=== PATIENT | female | born 1960 | race Native Hawaiian/Other Pacific Islander ===

== ENCOUNTER 2020-01-13 12:57 | Outpatient (REF) | payer OTHER, SELFPAY | END 2020-01-13 12:58 | disposition home or self-care (01) | LOC: HO.LAB 12:57 | PROVIDERS: Visit Provider Internal Medicine | DX: Z20.828 Contact with and (suspected) exposure to other viral communicable diseases (principal) | CPT/HCPCS: C9803; U0003 ==

== ENCOUNTER 2020-01-23 15:39 | Outpatient (REF) | payer OTHER, SELFPAY | END 2020-01-23 15:40 | disposition home or self-care (01) | LOC: HO.LAB 15:39 | PROVIDERS: Visit Provider Internal Medicine | DX: Z20.828 Contact with and (suspected) exposure to other viral communicable diseases (principal) | CPT/HCPCS: C9803; U0003 ==

== ENCOUNTER 2020-03-02 09:48 | Outpatient (REF) | payer OTHER, SELFPAY ==
[2020-03-02 10:21] LABS: MANUAL DIFF FLAG NO
[2020-03-02 10:24] LABS: Basophils Percent Auto 0.5 % (0-2); Eosinophils Absolute Auto 0.1 X10*3/uL (0.0-0.4); Eosinophils Percent Auto 2.1 % (0-4); Hematocrit 42.3 % (37-47); Imm Gran Abs Auto 0.02 X10*3/uL (0.00-0.03); Imm Gran Pct Auto 0.3 % (0.0-0.4); Lymphocytes Absolute Auto 1.6 X10*3/uL (1.2-4.9); Lymphocytes Percent Auto 28.5 % (20-40); Mean Corpuscular HGB Conc 33.1 g/dl (31.0-35.0); Mean Corpuscular Hemoglobin 29.5 pg (27.0-33.0); Mean Corpuscular Volume 89.1 fL (80-98); Mean Platelet Volume 10.3 fL (9.4-12.3); Monocytes Absolute Auto 0.5 X10*3/uL (0.1-1.2); Neutrophils Absolute Auto 3.4 X10*3/uL (2.0-8.3); Neutrophils Percent Auto 59.6 % (45-73); Platelet Count 251 X10*3/uL (160-400); Red Blood Count 4.75 X10*6/uL (4.20-5.50); White Blood Count 5.8 X10*3/uL (4.8-10.8)
[2020-03-02 10:33] LABS: Glucose Urine UA NEG (NEG); Leukocyte Esterase Urine NEG (NEG); Nitrite Urine NEG (NEG); Urine Blood TRACE (NEG); Urine Ketones NEG (NEG); Urine Protein NEG (NEG-TRACE)
[2020-03-02 10:36] LABS: Appearance Urine CLOUDY; Color Urine YELLOW
[2020-03-02 10:57] LABS: Alanine Aminotransferase 41 U/L (0-31); Albumin Level 4.3 g/dL (3.5-5.0); Alkaline Phosphatase 105 U/L (39-117); Aspartate Amino Transferase 29 U/L (5-31); Bilirubin Total 0.8 mg/dL (0.0-1.0); Blood Urea Nitrogen 8 mg/dL (9-16); Calcium 10.1 mg/dL (8.4-10.2); Cholesterol 209 mg/dL; Estimated Glomerular Filt Rate > 60; Glucose Fasting 99 mg/dL (60-99); HDL Cholesterol 45 mg/dL; LDL Cholesterol Calculated 134 mg/dl; Total Protein 6.7 g/dL (6.5-8.0); Triglycerides 153 mg/dL
[2020-03-02 10:57] LABS: Bacteria Urine 2+ /LPF; Mucus Urine 2+ /LPF; Squamous Epithelial Cell Urine 2+ /LPF
[2020-03-02 11:08] LABS: TSH reflex Free T4 1.48 mIU/mL (0.32-4.0)
[2020-03-02 11:11] LABS: Anion Gap 11 (12-20); Carbon Dioxide 29 mmol/L (22-29); Chloride 105 mmol/L (96-108); Potassium 4.3 mmol/l (3.3-5.1); Sodium 141 mmol/L (135-145)
== END 2020-03-02 09:49 | disposition home or self-care (01) ==
LOC: HO.LAB 09:48
PROVIDERS: PCP Internal Medicine; Visit Provider Internal Medicine
DX: Z00.00 Encounter for general adult medical examination without abnormal findings (principal); E66.01 Morbid (severe) obesity due to excess calories; I10 Essential (primary) hypertension; Z68.41 Body mass index [BMI] 40.0-44.9, adult
CPT/HCPCS: 36415; 80053; 80061; 81001; 84443; 85025

== ENCOUNTER 2020-04-13 12:37 | Outpatient (REF) | payer OTHER, SELFPAY ==
--- NOTE | ~2020-04-13 | US_ITS ---
EXAMINATION: MM DIAGNOSTIC DIGITAL BREAST TOMOSYNTHESIS, BILATERAL US DIAGNOSTIC ULTRASOUND BREAST, RIGHT CLINICAL INFORMATION: Due for yearly. Also follow-up probable benign nodule central inner right breast noted on outside imaging. Family history breast cancer sister, at age 35. The lifetime risk of breast cancer based on the Tyrer-Cuzick Model is 13%. COMPARISON: Outside imaging [facility]: Mammography 03/26/2018, 03/20/2018, targeted right breast ultrasound 11/22/2018. TECHNIQUE: Digital breast tomosynthesis is performed in both the craniocaudal and mediolateral oblique views along with computer-aided detection (CAD). Synthesized 2D images are generated from the tomosynthesis. Ultrasound right breast is targeted to the inner quadrants 1:00 through 5:00 position. Grayscale imaging and color Doppler are performed without and with harmonics. FINDINGS: There are scattered areas of fibroglandular density (ACR BI-RADS breast composition Category b). Parenchymal pattern is similar to previous outside exam. Scattered small benign-appearing nodular asymmetries are stable, including the dominant nodule for follow-up mid 2:30 o'clock position right breast measuring just under 1 cm average dimension. There is no architectural abnormality or developing density. No abnormal calcifications. There are 2 biopsy clip markers lower inner right breast. The axilla and skin contours are unremarkable. Ultrasound right breast demonstrates smooth hypoechoic nodule 2:30 o'clock position approximately 7 cm from nipple, similar in size and shape to the outside targeted ultrasound 2019. Lesion measures under 1 cm in average dimension. Lack of change in 2 years suggests a benign entity. Results are discussed with the patient at time of visit. US/US breast RT limited IMPRESSION: 1. Bilateral mammography without significant change from prior outside exam 2019. 2. Dominant nodule just under 1 cm 2:30 o'clock right breast, stable. ASSESSMENT: BI-RADS 2: Benign RECOMMENDATION: Routine annual mammography screening. This patient's information was entered into a reminder system with a target due date for their next mammogram.
== END 2020-04-13 12:38 | disposition home or self-care (01) ==
LOC: HO.MAMMO 12:37
PROVIDERS: PCP Internal Medicine; Visit Provider Internal Medicine
DX: N63.12 Unspecified lump in the right breast, upper inner quadrant (principal)
CPT/HCPCS: 76642; 77062; 77066

== ENCOUNTER 2020-10-06 10:08 | Outpatient (REF) | payer OTHER, SELFPAY ==
--- NOTE | ~2020-10-06 | XR_ITS ---
EXAMINATION: XR LUMBOSACRAL SPINE CLINICAL INFORMATION: Low back pain COMPARISON: None TECHNIQUE: Three views of the lumbosacral spine. FINDINGS: Bone alignment is normal. No fracture or dislocation is seen. Disc spaces are normal. There is multilevel facet arthritis. There is evidence of mild atherosclerotic disease. XR/XR lumbar spine 2-3V IMPRESSION: Facet arthritis.
== END 2020-10-06 10:09 | disposition home or self-care (01) ==
LOC: HO.XRAY 10:08
PROVIDERS: PCP Internal Medicine; Visit Provider Internal Medicine
DX: M54.5 Low back pain (principal)
CPT/HCPCS: 72100

== ENCOUNTER 2021-01-10 09:21 | Outpatient (REF) | payer OTHER, SELFPAY ==
[2021-01-10 14:16] LABS: CT PCR NOT DETECTED (Not Detect.); NG PCR NOT DETECTED (Not Detect.)
[2021-01-11 10:27] LABS: BV Int Neg Control Negative (Negative); BV Int Pos Control Positive (Positive)
[2021-01-13 21:22] LABS: HPV mRNA E6/E7 rflx Not Detected (Not Detected)
== END 2021-01-10 09:22 | disposition home or self-care (01) ==
LOC: HO.LAB 09:21
PROVIDERS: PCP Internal Medicine; Visit Provider Advanced Practice Midwife
DX: Z01.411 Encounter for gynecological examination (general) (routine) with abnormal findings (principal); Z11.51 Encounter for screening for human papillomavirus (HPV); R21 Rash and other nonspecific skin eruption; N90.89 Other specified noninflammatory disorders of vulva and perineum; Z72.0 Tobacco use
CPT/HCPCS: 87480; 87491; 87510; 87591; 87624; 87660; 88142

== ENCOUNTER 2021-01-25 10:14 | Outpatient (REF) | payer OTHER, SELFPAY ==
--- NOTE | ~2021-01-25 | US_ITS ---
EXAMINATION: ULTRASOUND EXTREMITY NONVASCULAR CLINICAL INFORMATION: Right vulvar mass COMPARISON: None TECHNIQUE: Grayscale and color imaging of the right labia majora region using a linear transducer FINDINGS: No solid or cystic soft tissue mass is seen. No fluid collection is seen. US/US extremity nonvascular IMPRESSION: No abnormality seen by ultrasound.
== END 2021-01-25 10:15 | disposition home or self-care (01) ==
LOC: HO.HMGCX 10:14
PROVIDERS: Visit Provider Advanced Practice Midwife
DX: N90.89 Other specified noninflammatory disorders of vulva and perineum (principal)
CPT/HCPCS: 76882

== ENCOUNTER → 2021-02-01 11:18 | Outpatient (BNVA) | payer OTHER, SELFPAY | PROVIDERS: PCP Internal Medicine; Visit Provider Advanced Practice Midwife | CPT/HCPCS: 99212 ==

== ENCOUNTER 2021-02-16 14:00 | Outpatient (RCR) | payer MEDICAID, OTHER, SELFPAY ==
--- NOTE | 2020-12-23 18:10 | MHC.PT.EP ---
[facility] [place] Office [place] Office [place] Office [address] Merrill Muhammad [address] [phone] F: [phone] F: [phone] F: [phone] F: [phone] Physical Therapy Plan of Care Date of Evaluation: Date of Surgery: N/A Diagnosis: lower back pain Assessment: pt presents to physical therapy with pain, decreased range of motion, decreased strength, impaired functional mobility, impaired postural awareness, and gait deviations. pt is a good candidate for skilled PT due to age, potential remediation of impairments, typical disease/condition progression and prognosis, comorbidities, and motivation. pt would benefit from tailored strengthening and stretching exercise program, functional training, gait training, postural re-training, neuromuscular re-education, modalities as needed for pain, equipment safety demonstration. Frequency and Duration: The patient will be seen 2x/wk for 6 wks Short Term Goals: pt will be I w/ HEP to promote self-management of condition. pt will demo proper sitting posture w/ lumbar roll to promote neutral spine w/ seated ADLs. pt will improve lumbar flexion by 25% to improve ease in lower body dressing. Education And Outreach Coordinator Goals: pt will report <6/10 low back pain w/ standing for >15 minutes to improve tolerance of doing dishes or folding laundry. pt will tolerate ambulation of 5 x 30' w/ subjective pain reports of <6/10 low back pain to promote pain-limited return to household ambulation. pt will improve B hip and knee strength to B 4+/5 in all planes to improve tolerance for stairs. Treatment Plan: Modalities to reduce pain, spasms and effusion. Manual therapy to restore motion and function. Therapeutic exercise to improve strength and flexibility. Neuromuscular re-education for posture and balance. Therapeutic activities to return to functional activities of daily living. Electronically signed by: Dory Flores PT, DPT Please sign and return to therapist. Thank you for your referral.
--- NOTE | 2021-03-17 15:45 | MHC.PT.DC ---
[facility] [place] Office [place] Office [place] Office [address] Mrerill Muhammad 140 [facility] [phone] F: [phone] F: [phone] F: [phone] F: [phone] Physical Therapy Discharge Report Diagnosis: lower back pain Date of Surgery: N/A Date of Evaluation: 12/23/20 Date of Discharge: 03/17/21 Treatments to Date: 11 Cancellations to Date: 3 No Shows to Date: 5 Discharge Status: Visit Non-compliance Discharge Summary: The patient overall was not making progress towards her goals or improvement of her pain. She frequently arrived late and has a total of five no shows. She is discharged from this physical therapy plan of care at this time. Electronically signed by: Dory Flores PT, DPT Please sign and return to therapist. Thank you for your referral.
== END 2021-03-17 15:46 | disposition home or self-care (01) ==
LOC: HO.PT 14:00
PROVIDERS: PCP Internal Medicine; Visit Provider Internal Medicine
DX: M54.50 Low back pain, unspecified (principal)
CPT/HCPCS: 97110; 97112; 97140; 97150; 97162; 97530

== ENCOUNTER 2021-09-23 16:18 | Emergency (ER) | payer OTHER, SELFPAY ==
[2021-09-23 18:07] VITALS: BP 175/88; PULSE 80; RESP 16; TEMP 36.5; O2SAT 95; BMI 42.7
--- NOTE | 2021-09-23 20:16 | ED_ITS ---
HPI - General Adult General Chief complaint: Skin/Abscess/Foreign Body Stated complaint: cyst Time Seen by Provider: 09/23/21 20:07 Source: patient Mode of arrival: ambulatory Limitations: no limitations History of Present Illness HPI narrative: Patient is a 61 year old female presenting to the emergency department today with an abscess to her left inner thigh. Patient states that she has an abscess to the left inner thigh and she would like us to open it up. Patient states that it has been getting worse over the last week. Patient denies any dizziness, lightheadedness, abdominal pain, nausea, vomiting, fever, chills, blurry vision, double vision, loss of vision, chest pain, difficulty breathing, shortness of breath, back pain, night sweats, pain with urination, increased urinary frequency, increased urinary urgency, blood in her urine or stool, syncope or a near syncopal episode, recent trauma or falls, bowel incontinence, bladder incontinence, bowel retention, bladder retention, or any other complaints at this time. Onset (ago): week(s) (1) Location: left and lower extremity Radiation: non-radiation Severity: mild Severity scale (1-10): 3 Quality: dull Pain Consistency: constant Relieving factors: none Exacerbating factors: none Associated symptoms: denies other symptoms Treatments prior to arrival: none Related Data Previous Rx's Medication Instructions Recorded albuterol sulfate 90 mcg/actuation 2 puff inhalation Q6H PRN 09/14/20 aerosol inhaler (Ventolin HFA) shortness of breath or wheezing 30 days #8.5 grams baclofen 10 mg tablet 10 mg PO Q12H PRN muscle pain #10 12/21/20 tabs naproxen 250 mg tablet 250 mg PO Q12H PRN pain #14 tabs 12/21/20 clotrimazole-betamethasone 1 1 appl topical BID PRN itching 14 01/10/21 %-0.05 % topical cream days #45 grams losartan 100 mg tablet 100 mg PO DAILY #90 tabs 03/19/21 metoprolol succinate 100 mg 100 mg PO DAILY #90 tabs 03/19/21 tablet,extended release 24 hr pantoprazole 40 mg tablet,delayed 40 mg PO DAILY 90 days #90 tabs 03/19/21 release sertraline 50 mg tablet 50 mg PO DAILY 30 days #30 tabs 06/14/21 hydroxyzine HCl 25 mg tablet 25 mg PO TID PRN anxiety 30 days 06/17/21 #90 tabs amlodipine 10 mg tablet (Norvasc) 10 mg PO DAILY #90 tabs 08/16/21 aspirin 81 mg tablet,delayed 81 mg PO DAILY 90 days #30 tabs 09/16/21 release cephalexin 500 mg capsule 500 mg PO Q6H 7 days #28 caps 09/23/21 Allergies Allergy/AdvReac Type Severity Reaction Status Date / Time No Known Allergies Allergy Verified 03/17/21 11:58 Review of Systems Constitutional: Constitutional: Reports no additional constitutional complaints, Denies chills, Denies fever(s) and Denies night sweats Eyes: Eyes: Reports no additional eye complaints, Denies blurry vision, Denies change in vision, Denies diplopia, Denies eye discharge, Denies loss of vision and Denies eye pain ENT: Denies dizziness Cardiovascular: Cardiovascular: Reports no additional cardiovascular complaints, Denies chest pain, Denies lightheadedness, Denies Loss of Consciousness and Denies dyspnea Respiratory: Respiratory: Reports no additional respiratory complaints and Denies dyspnea Gastrointestinal: Gastrointestinal: Reports no additional gastrointestinal complaints, Denies abdominal pain, Denies melena, Denies hematochezia, Denies change in bowel habits and Denies change in stool character Genitourinary: Genitourinary: Denies hematuria, Denies urinary frequency, Denies dysuria, Denies urinary incontinence, Denies urinary hesitancy and Denies urinary urgency Musculoskeletal: Musculoskeletal: Reports no additional musculoskeletal complaints, Denies numbness and Denies tingling Integumentary/Breasts: Comments: left inner thigh Neurologic: Denies dizziness, Denies loss of vision, Denies numbness and Denies tingling Psychiatric: Psychiatric: Reports no additional psychiatric complaints Endocrine: Endocrine: Reports no additional endocrine complaints Hematologic/Lymphatic: Hematologic/Lymphatic: Reports no additional hematologic/lymphatic complaints Allergic/Immunologic: Allergic/Immunologic: Reports no additional allergic/immunologic complaints PMFSH Past Medical History Attestation statement: The following information was validated with the patient. Source: old records reviewed Medical History Anxiety Asthma Benign essential hypertension Breast mass, right GERD without esophagitis Low back pain Morbid obesity with BMI of 40.0-44.9, adult Normal colonoscopy (~2014) Post traumatic stress disorder (PTSD) Pure hypercholesterolemia Surgical History History of breast lump/mass excision History of tubal ligation Family History Family History Mother Diabetes mellitus Hypertension Asthma Endometrial cancer Sister Lymphoma Sarcoma Breast cancer Social History Social History Housing: Apartment Alcohol intake: current Alcohol intake frequency: a few times a month Alcohol type: wine Patient Tobacco Use Status: Current everyday Tobacco user Tobacco use type: Cigarette Cigarettes Per Day: 5 Second Hand Smoke Exposure: Yes Advance Directives: No Advance Directives Information Provided: No service: No Current occupational status: unemployed Cognitive needs: No Hearing needs: No Vision needs: Yes (Reading glasses) Physical Exam ED Vital Signs: Vital Signs - 24 hr 09/23/21 18:07 Temperature 97.7 F Pulse Rate 80 Respiratory Rate 16 Blood Pressure 175/88 H Pulse Oximetry 95 Oxygen Delivery Method Room Air BMI result Body Mass Index 42.7 Const General: cooperative, no acute distress, alert and awake Nutritional Appearance: well nourished Orientation/consciousness: patient oriented x3 Limitations: no limitations HENMT Head: Yes normal to inspection and Yes atraumatic Ears: hearing grossly normal bilaterally and external ears normal General nose exam: Normal external nose present, no nasal discharge noted and no epistaxis Face and sinus: Yes normal facial exam, No abrasion and No laceration Mouth: Normal oral and palatal mucosa present, no drooling and no muffled voice Eyes General: appearance normal, both eyes and all related structures Periorbital: periorbital findings normal Eyelids: Yes eyelids normal Conjunctivae: conjunctivae normal Pupils: Equal, round and reactive pupils present EOM: EOMs intact bilaterally Neck Neck: Yes normal visual inspection, Yes full ROM and Yes no lymphadenopathy Chest Chest palpation & inspection: normal inspection of the chest Resp Effort & Inspection: normal respiratory effort and able to speak in complete sentences Auscultation: clear to auscultation bilaterally Cardio Rate: regular rate Rhythm: regular rhythm GI Inspection: Yes normal to inspection Skin Other: small area of erythema and fluctuance Neuro General: patient oriented x3 and moves all extremities Cranial nerves: Yes Equal, round and reactive pupils present Cognition (Neuro): normal cognition Motor exam (neuro): 5/5 motor strength present throughout Sensory Exam: Normal double simultaneous stimulation for sensation Coordination: [id number] test normal Extrem General: Yes normal to inspection, Yes full ROM and Yes capillary refill normal Psych Appearance: grossly normal Mental Status: mental status grossly normal Affect: normal affect Attitude: cooperative Thought process: Normal thought process present Thought content: Normal thought content present Insight: Good insight present (Psych) Procedures Abscess I/D Site: lower extremity Side (if applicable): left Local Anesthetic: lidocaine 1% Amount of anesthesia used (mL): 2 Amount of fluid expressed (mL): 25,555 Sent for culture/gram staining?: No Irrigation: No Packing used?: none Medical Decision Making MDM Narrative Medical decision making narrative: Patient is a 61 year old female presenting to the emergency department today with a left thigh abscess. Patient's physical exam showed a small area of er ythema and fluctuance to the left inner thigh. I explained my physical exam findings to the patient. I answered all questions asked by the patient. Patient's abscess was incised and drained, per procedure note, without incident. I stressed the importance of the patient taking her medication as prescribed. I stressed the importance of the patient following up with her primary care provider. I stressed the importance of the patient returning to the emergency department immediately if her symptoms were to worsen or if she were to develop any dizziness, shortness of breath, difficulty breathing, chest pain, blurry vision, loss of vision, nausea, vomiting, abdominal pain, fever, chills, back pain, or any other complaints. Patient verbalized agreement and understanding with this treatment plan and discharge. Differential Diagnosis Differential Diagnosis: abscess Medical Records Medical records reviewed: Yes I reviewed the patient's medical records. Discharge Plan Discharge Clinical Impression: Abscess Patient Disposition: Home, Self-Care Instructions: Abscess (ED), Abscess Incision and Drainage (DC) Additional Instructions: Follow up with your primary care provider. Return to the emergency department immediately if your symptoms worsen or if you develop any dizziness, shortness of breath, difficulty breathing, chest pain, blurry vision, loss of vision, nausea, vomiting, abdominal pain, fever, chills, back pain, or any other complaints. Prescriptions: New cephalexin 500 mg capsule 500 mg PO Q6H 7 Days Qty: 28 0RF No Action metoprolol succinate 100 mg tablet extended release 24 hr 100 mg PO DAILY Qty: 90 1RF losartan 100 mg tablet 100 mg PO DAILY Qty: 90 1RF pantoprazole 40 mg tablet,delayed release (DR/EC) 40 mg PO DAILY 90 Days Qty: 90 1RF sertraline 50 mg tablet 50 mg PO DAILY 30 Days Qty: 30 2RF hydroxyzine HCl 25 mg tablet 25 mg PO TID PRN (Reason: anxiety) 30 Days Qty: 90 2RF amlodipine [Norvasc] 10 mg tablet 10 mg PO DAILY Qty: 90 1RF aspirin 81 mg tablet,delayed release (DR/EC) 81 mg PO DAILY 90 Days Qty: 30 0RF albuterol sulfate [Ventolin HFA] 90 mcg/actuation HFA aerosol inhaler 2 puff inhalation Q6H PRN (Reason: shortness of breath or wheezing) 30 Days Qty: 8.5 11RF baclofen 10 mg tablet 10 mg PO Q12H PRN (Reason: muscle pain) Qty: 10 0RF naproxen 250 mg tablet 250 mg PO Q12H PRN (Reason: pain) Qty: 14 0RF clotrimazole-betamethasone 1-0.05 % cream 1 appl topical BID PRN (Reason: itching) 14 Days Qty: 45 2RF Referrals: [facility] [place] General Surgeons [Provider Group] (If the abscess returns or gets worse, call to establish and follow up with a general surgeon. ) Kurt Vaughan MD [Primary Care Provider] - Print Language: Yi
[2021-09-23] MEDS: HYDROcodone Bit/Acetam 5/325 TABLET 1 TAB PO (20:58)
[2021-09-23] MEDS: cephALEXin 500 MG CAPSULE PO (20:58)
== END 2021-09-23 21:31 | disposition home or self-care (01) ==
PROVIDERS: Emergency Provider Emergency Medicine; PCP Internal Medicine
DX: L02.416 Cutaneous abscess of left lower limb (principal); Z79.899 Other long term (current) drug therapy; F17.210 Nicotine dependence, cigarettes, uncomplicated; Z71.6 Tobacco abuse counseling
CPT/HCPCS: 10060; 99283

== ENCOUNTER 2022-03-22 12:01 | Outpatient (REF) | payer OTHER, SELFPAY ==
--- NOTE | ~2022-03-22 | XR_ITS ---
EXAMINATION: XR KNEE, RIGHT CLINICAL INFORMATION: Reason for Exam M25.561 - Pain in right knee COMPARISON: None TECHNIQUE: 4 views of the knee FINDINGS: No acute fracture or dislocation. Joint spaces are maintained. No joint effusion. Soft tissues are unremarkable. XR/XR knee RT 4V IMPRESSION: * No acute osseous abnormality. * Joint spaces are maintained without significant degenerative change.
== END 2022-03-22 12:02 | disposition home or self-care (01) ==
LOC: HO.XRAY 12:01
PROVIDERS: PCP Internal Medicine; Visit Provider Internal Medicine
DX: M25.561 Pain in right knee (principal)
CPT/HCPCS: 73564

== ENCOUNTER 2022-04-12 12:27 | Outpatient (REF) | payer OTHER, SELFPAY ==
--- NOTE | ~2022-04-12 | MM_ITS ---
EXAMINATION: MM SCREENING DIGITAL BREAST TOMOSYNTHESIS, BILATERAL CLINICAL INFORMATION: Screening. Asymptomatic. The lifetime risk of breast cancer based on the Tyrer-Cuzick Model is 10.2%. COMPARISON: Mammography: April 13, 2020 and studies dating back to March 20, 2018. TECHNIQUE: Digital breast tomosynthesis is performed in both the craniocaudal and mediolateral oblique views along with computer-aided detection (CAD). Synthesized 2D images are generated from the tomosynthesis. FINDINGS: There are scattered areas of fibroglandular density (ACR BI-RADS breast composition Category b). There are no new significant masses, abnormal calcifications, or other abnormalities. Postsurgical change again seen in the upper outer aspect of the right breast. MM/MM tomosynthesis screening BI IMPRESSION: No significant changes from prior exam. ASSESSMENT: BI-RADS 2: Benign RECOMMENDATION: Routine annual mammography screening. This patient's information was entered into a reminder system with a target due date for their next mammogram.
== END 2022-04-12 12:28 | disposition home or self-care (01) ==
LOC: HO.MAMMO 12:27
PROVIDERS: PCP Internal Medicine; Visit Provider Internal Medicine
DX: Z12.31 Encounter for screening mammogram for malignant neoplasm of breast (principal)
CPT/HCPCS: 77063; 77067

== ENCOUNTER → 2022-06-28 13:45 | Outpatient (BNVA) | payer MEDICARE, MEDICAID, SELFPAY | PROVIDERS: PCP Internal Medicine; Visit Provider Advanced Practice Midwife | DX: Z01.419 Encounter for gynecological examination (general) (routine) without abnormal findings (principal); N95.1 Menopausal and female climacteric states; N90.89 Other specified noninflammatory disorders of vulva and perineum; B35.6 Tinea cruris | CPT/HCPCS: 99212; G0101 ==

== ENCOUNTER 2022-09-18 12:20 | Outpatient (AMB) | payer MEDICARE, MEDICAID, SELFPAY ==
[2022-09-18 12:29] VITALS: BP 120/76; BMI 40.9
--- NOTE | 2022-09-18 12:29 | MHC.OFFVIS ---
Intake Vital Signs 09/18/22 12:29 Height 5 ft 7 in Weight 261 lb BMI 40.9 BP 120/76 Intake Visit Reasons: Evaluate Vulva mass per Ellen Social Media Designer Required: No Information Interpreted: non-clinical & clinical Access Database Developer: Access Database Developer Present (Aidyn) Allergies No Known Allergies Allergy (Verified 09/18/22 12:33) Is last menstrual period known: No Post menopausal: Yes HPI HPI Comments History of Present Illness Details Presenting referred from Tata Hester CNM regarding a right vulvar swelling over the last 27 years. The patient that is nontender but the right vulvar swelling has been increasing over the last 27 years right after her last vaginal delivery. No tenderness no other complaints PFSH Medical History Allergic rhinitis Anxiety Asthma Benign essential hypertension Breast mass, right COVID-19 GERD without esophagitis Low back pain Morbid obesity with BMI of 40.0-44.9, adult Normal colonoscopy (~2014) Post traumatic stress disorder (PTSD) Pure hypercholesterolemia Surgical History History of breast lump/mass excision History of tubal ligation Family History Mother Diabetes mellitus Hypertension Asthma Endometrial cancer Sister Lymphoma Sarcoma Breast cancer Social History Housing: Apartment Alcohol intake: current Alcohol intake frequency: a few times a month Alcohol type: wine Patient Tobacco Use Status: Current everyday Tobacco user Tobacco use type: Cigarette Cigarettes Per Day: 3 e-Cigarette/Vaping Use: Never Used Second Hand Smoke Exposure: Yes service: No Current occupational status: unemployed Cognitive needs: No Hearing needs: No Vision needs: Yes (Reading glasses) Female Reproductive History Menstrual Age of Menarche: 16 control method: permanent sterilization Total pregnancies: 4 Full term: 3 Number of Living Children: 3 Ab spontaneous: 1 Date of last pap smear: 01/11/21 (negative) Date of Mammogram: 04/12/22 Review of Systems Const All systems reviewed & are unremarkable except as noted in HPI and below Physical Exam Vital Signs: Last Vital Signs BP 120/76 09/18/22 12:29 BMI result Body Mass Index 40.9 General: Yes no CVA tenderness External Female Exam: normal external appearance, normal appearance of the urethra and other (Right labia majora swelling 4 x 5 cm soft) Speculum Exam - Vagina: normal appearance of the vagina, normal palpation, no lesions and no masses Speculum Exam - Cervix: normal appearance of the cervix, normal palpation, no lesions, no masses and nontender Bimanual exam- vagina & uterus: normal bimanual exam, normal palpation, uterine size normal, normal palpation, uterine shape normal, No Cervical tenderness present and non-tender Bimanual Exam- Adnexa, other: normal adnexae Back/Spine/Pelvis Back: no CVA tenderness Assessment & Plan Assessment & Plan (1) Vulvar mass: Comment: right labia majora Code(s): N90.89 - Other specified noninflammatory disorders of vulva and perineum Plan: Discussed with the patient the finding on physical exam, will order ultrasound of the perineum to detect solid mass versus fluid that the plan needle aspiration or biopsy under ultrasound guidance. Depending on the pathology results will treat accordingly. All questions answered, the patient verbalized understanding. Instructions given the patient to schedule ultrasound follow-up appointment Orders: Orders US extremity nonvascular Today N90.89 - Other specified noninflammatory disorders of vulva and perineum Coding Level of Care Code Est Pt Level 3 (50840) Diagnoses Vulvar mass N90.89
== END 2022-09-18 12:52 | disposition home or self-care (01) ==
LOC: HO.HWS 12:20
PROVIDERS: PCP Internal Medicine; Visit Provider Obstetrics & Gynecology
DX: N90.89 Other specified noninflammatory disorders of vulva and perineum (principal)
CPT/HCPCS: 99213

== ENCOUNTER → 2022-09-18 12:20 | Outpatient (BNVA) | payer MEDICARE, MEDICAID, SELFPAY | PROVIDERS: PCP Internal Medicine; Visit Provider Obstetrics & Gynecology | DX: N90.89 Other specified noninflammatory disorders of vulva and perineum (principal) | CPT/HCPCS: 99212 ==

== ENCOUNTER 2022-09-22 13:35 | Outpatient (REF) | payer MEDICARE, MEDICAID, SELFPAY ==
--- NOTE | ~2022-09-22 | US_ITS ---
EXAMINATION: US RIGHT LABIA, LIMITED/FOLLOW UP CLINICAL INFORMATION: Disorder of vulva and perineum. Lump right labia. COMPARISON: None available. TECHNIQUE: Targeted ultrasound images were obtained of the area of concern as indicated by the patient in the right labia. Radiologist was not in attendance. Images were later provided for interpretation. FINDINGS: There is a 2.6 x 2.2 x 2.0 cm complex heterogeneous, hypoechoic area with irregular margins and no demonstrable internal vascularity in the area indicated by the patient in the right labia. US/US pelvic limited IMPRESSION: There is a 2.6 cm complex heterogeneous, hypoechoic lesion with irregular margins in the area indicated by the patient in the right labia of indeterminate etiology. Gynecologic consultation and possible additional imaging with MRI recommended to determine further management.
== END 2022-09-22 13:36 | disposition home or self-care (01) ==
LOC: HO.US 13:35
PROVIDERS: PCP Internal Medicine; Visit Provider Obstetrics & Gynecology
DX: N90.89 Other specified noninflammatory disorders of vulva and perineum (principal)
CPT/HCPCS: 76857

== ENCOUNTER 2022-10-19 10:00 | Outpatient (AMB) | payer MEDICARE, MEDICAID, SELFPAY ==
--- NOTE | 2022-10-19 10:02 | A.OFFVIS_ITS ---
Intake Vital Signs 10/19/22 10:04 Height 5 ft 7 in Weight 260 lb 2.327 oz BMI 40.7 BP 126/78 Intake Visit Reasons: US Follow up School Psychologist Assistant Required: No Information Interpreted: non-clinical & clinical Accompanied by: Self / Same As Patient Allergies No Known Allergies Allergy (Verified 10/19/22 10:05) HPI HPI Comments History of Present Illness Details Presenting for right labial ultrasound follow-up . It showed the following: There is a 2.6 x 2.2 x 2.0 cm complex heterogeneous, hypoechoic area with irregular margins and no demonstrable internal vascularity in the area indicated by the patient in the right labia [facility] Medical History Allergic rhinitis Post traumatic stress disorder (PTSD) Anxiety COVID-19 Low back pain Pure hypercholesterolemia Breast mass, right GERD without esophagitis Morbid obesity with BMI of 40.0-44.9, adult Normal colonoscopy (~2014) Asthma Benign essential hypertension Surgical History History of breast lump/mass excision History of tubal ligation Family History Mother Diabetes mellitus Hypertension Asthma Endometrial cancer Sister Lymphoma Sarcoma Breast cancer Social History Housing: Apartment Alcohol intake: current Alcohol intake frequency: a few times a month Alcohol type: wine Patient Tobacco Use Status: Current everyday Tobacco user Tobacco use type: Cigarette Cigarettes Per Day: 3 e-Cigarette/Vaping Use: Never Used Second Hand Smoke Exposure: Yes service: No Current occupational status: unemployed Cognitive needs: No Hearing needs: No Vision needs: Yes (Reading glasses) Female Reproductive History Menstrual Age of Menarche: 16 Review of Systems Const All systems reviewed & are unremarkable except as noted in HPI and below Reports as per HPI and Reports no additional complaints GI Reports no additional complaints Reports no additional complaints Assessment & Plan Assessment & Plan (1) Vulvar mass: Comment: right labia majora Code(s): N90.89 - Other specified noninflammatory disorders of vulva and perineum Plan: Discussed with the patient the right labial ultrasonographic findings, recommended the next step is to proceed with drainage versus biopsy under imaging guidance , depending on the results will determine the next step, excision versus expectant management. Call in to interventional Radiology Department to the IR environmental projects advisor today to review the ultrasound and recommend if it is feasible to proceed with next step as drainage or biopsy under imaging guidance. All questions answered, the patient verbalized understanding Coding Level of Care Code Est Pt Level 3 (82585) Diagnoses Vulvar mass N90.89
[2022-10-19 10:04] VITALS: BP 126/78; BMI 40.7
== END 2022-10-19 10:18 | disposition home or self-care (01) ==
PROVIDERS: PCP Internal Medicine; Visit Provider Obstetrics & Gynecology
DX: N90.89 Other specified noninflammatory disorders of vulva and perineum (principal)
CPT/HCPCS: 99213

== ENCOUNTER → 2022-10-19 10:00 | Outpatient (BNVA) | payer MEDICARE, MEDICAID, SELFPAY | PROVIDERS: PCP Internal Medicine; Visit Provider Obstetrics & Gynecology | DX: N90.89 Other specified noninflammatory disorders of vulva and perineum (principal) | CPT/HCPCS: 99212 ==

== ENCOUNTER 2022-12-08 11:41 | Outpatient (AMB) | payer OTHER, SELFPAY ==
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
[2022-12-08 12:11] VITALS: BMI 40.7
== END 2022-12-08 12:50 | disposition home or self-care (01) ==
PROVIDERS: PCP Internal Medicine; Visit Provider Orthopaedic Surgery
DX: M23.91 Unspecified internal derangement of right knee (principal)
CPT/HCPCS: 20610; 99204

== ENCOUNTER → 2022-12-08 11:41 | Outpatient (BNVA) | payer OTHER, SELFPAY | PROVIDERS: PCP Internal Medicine; Visit Provider Orthopaedic Surgery | DX: M23.91 Unspecified internal derangement of right knee (principal) | CPT/HCPCS: 20610; 99202; J0665; J1100 ==

== ENCOUNTER 2022-12-26 10:21 | Outpatient (REF) | payer OTHER, MEDICAID, SELFPAY ==
--- NOTE | ~2022-12-26 | US_ITS ---
EXAMINATION: US PELVIS, LIMITED/FOLLOW UP CLINICAL INFORMATION: Right labial lump on physical exam. COMPARISON: Ultrasound pelvic Limited 09/22/2022. TECHNIQUE: Targeted ultrasound images were obtained of the area of concern as indicated by the patient in the right labia. Radiologist was not in attendance. Images were later provided for interpretation. FINDINGS: The previously seen 2.6 cm complex heterogeneous lesion is not seen. Biopsy was therefore not performed. US/US pelvic limited IMPRESSION: Previously seen 2.6 cm complex heterogeneous mass is not seen on this examination. This was directly communicated to Dr. Cerda. This procedure was performed by Solomon Farmer PA-C and supervised by Dr. Camargo.
== END 2022-12-26 10:22 | disposition home or self-care (01) ==
LOC: HO.US 10:21
PROVIDERS: PCP Internal Medicine; Visit Provider Obstetrics & Gynecology
DX: N90.89 Other specified noninflammatory disorders of vulva and perineum (principal)
CPT/HCPCS: 76857

== ENCOUNTER 2023-01-16 09:40 | Outpatient (AMB) | payer OTHER, SELFPAY ==
--- NOTE | 2023-01-16 10:39 | MHC.OFFVIS ---
Intake Vital Signs 01/16/23 10:41 Height 5 ft 7 in Weight 257 lb 15.053 oz BMI 40.4 Intake Visit Reasons: recheck vulva Allergies No Known Allergies Allergy (Verified 10/19/22 10:05) HPI HPI Comments History of Present Illness Details The patient is presenting for follow-up ultra the labial ultrasound. Initially , the patient was seen, for a right labial lump that has been present for the last 27 years according to patient's and has been increasing in size recent, the lump was identified on a pelvic exam. Perineal ultrasound showed the following There is a 2.6 cm complex heterogeneous, hypoechoic lesion with irregular margins in the area indicated by the patient in the right labia of indeterminate etiology. Gynecologic consultation and possible additional imaging with MRI recommended to determine further management. The patient was scheduled for right labial ultrasound guided biopsy , ultrasound showed the following: IMPRESSION: Previously seen 2.6 cm complex heterogeneous mass is not seen on this examination. No biopsy was done The patient is still complaining of her right labial lump [facility] Medical History Allergic rhinitis Post traumatic stress disorder (PTSD) Anxiety COVID-19 Low back pain Pure hypercholesterolemia Breast mass, right GERD without esophagitis Morbid obesity with BMI of 40.0-44.9, adult Normal colonoscopy (~2014) Asthma Benign essential hypertension Surgical History History of breast lump/mass excision History of tubal ligation Family History Mother Diabetes mellitus Hypertension Asthma Endometrial cancer Sister Lymphoma Sarcoma Breast cancer Social History Housing: Apartment Alcohol intake: current Alcohol intake frequency: a few times a month Alcohol type: wine Patient Tobacco Use Status: Current everyday Tobacco user Tobacco use type: Cigarette Cigarettes Per Day: 3 e-Cigarette/Vaping Use: Never Used Second Hand Smoke Exposure: Yes service: No Current occupational status: unemployed Cognitive needs: No Hearing needs: No Vision needs: Yes (Reading glasses) Female Reproductive History Menstrual Age of Menarche: 16 Review of Systems Const All systems reviewed & are unremarkable except as noted in HPI and below Physical Exam Vital Signs: BMI result Body Mass Index 40.4 General: Yes no CVA tenderness External Female Exam: normal appearance of the urethra and other (Right labia majora lump/swelling 4 x 5 cm soft ) Speculum Exam - Vagina: normal appearance of the vagina, normal palpation, no lesions and no masses Speculum Exam - Cervix: normal appearance of the cervix, normal palpation, no lesions, no masses and nontender Bimanual exam- vagina & uterus: normal bimanual exam, normal palpation, uterine size normal, normal palpation, uterine shape normal, No Cervical tenderness present and non-tender Bimanual Exam- Adnexa, other: normal adnexae Back/Spine/Pelvis Back: no CVA tenderness Assessment & Plan Assessment & Plan (1) Vulvar mass: Comment: right labia majora Code(s): N90.89 - Other specified noninflammatory disorders of vulva and perineum Plan: Discussed with the patient discrepancy between the finding on pelvic exam showing a right vulvar soft tissue lump and the above findings on right perineal ultrasound, showing resolution of the complex lesion seen previously on perineal ultrasound in 09/27, therefore will refer to [facility] for further management. All questions answered, the patient verbalized understanding. Instructed the patient to call our office back in case a referral appointment is not scheduled, missed or canceled so that we will assist on rescheduling another appointment, the patient verbalized understanding agreed with the plan. Coding Level of Care Code Est Pt Level 3 (70278) Diagnoses Vulvar mass N90.89
[2023-01-16 10:41] VITALS: BMI 40.4
== END 2023-01-16 11:21 | disposition home or self-care (01) ==
LOC: HO.HWS 09:40
PROVIDERS: PCP Internal Medicine; Visit Provider Obstetrics & Gynecology
DX: N90.89 Other specified noninflammatory disorders of vulva and perineum (principal)
CPT/HCPCS: 99213

== ENCOUNTER → 2023-01-16 09:40 | Outpatient (BNVA) | payer OTHER, SELFPAY | PROVIDERS: PCP Internal Medicine; Visit Provider Obstetrics & Gynecology | DX: N90.89 Other specified noninflammatory disorders of vulva and perineum (principal) | CPT/HCPCS: 99212 ==

== ENCOUNTER 2023-01-30 18:51 | Outpatient (REF) | payer OTHER, SELFPAY ==
--- NOTE | ~2023-01-30 | MR_ITS ---
EXAMINATION: MR KNEE WITHOUT CONTRAST, RIGHT CLINICAL INFORMATION: Internal derangement, right knee pain. COMPARISON: Radiographs dated 03/12/2022 TECHNIQUE: MRI of the knee without contrast was performed using routine sequences on a high-field scanner. FINDINGS: MENISCI: Medial Meniscus: There is a complex tear of the posterior horn and body with a radial component involving the inner two-thirds of the meniscal body and a longitudinal undersurface component extending into the posterior horn. Significant inner margin fraying is noted. Meniscal body is partially extruded. Lateral Meniscus: Intact LIGAMENTS: Cruciate: Intact Collateral: Edema signal around the MCL is likely reactive to the underlying meniscal abnormality. Collateral ligaments are intact. EXTENSOR MECHANISM: Intact ARTICULAR CARTILAGE/BONE: Patellofemoral Compartment: There is mild nonuniform chondral thinning and fibrillation at the patella, more notably at the lateral facet. Small marginal osteophytes. Trochlear cartilage appears relatively well-preserved. Lateral trochlear inclination angle measures 14 degrees, within normal limits. The sulcus angle is diminished, measuring 152 degrees. TT-TG distance measures 1.1 cm, normal. Medial Compartment: Small marginal osteophytes. There is mild nonuniform chondral thinning at the medial femoral condyle and medial tibial plateau weight-bearing surfaces with a small near full-thickness chondral fissure at the medial femoral condyle measuring 1 cm transverse. Focal subchondral edema signal at the far medial margin of the medial tibial plateau is likely reactive to the adjacent meniscal tear. No appreciable subchondral insufficiency fractures. Lateral Compartment: Normal JOINT FLUID AND BURSAE: Moderate to large joint effusion. Small Perez's cyst. MR/MR knee RT wo con IMPRESSION: 1. Complex tear of the posterior horn and body of the medial meniscus with partial extrusion of the meniscal body. 2. Mild medial and patellofemoral compartment osteoarthritis. 3. Moderate to large joint effusion and small Perez's cyst.
== END 2023-01-30 18:52 | disposition home or self-care (01) ==
LOC: HO.MRI 18:51
PROVIDERS: PCP Internal Medicine; Visit Provider Orthopaedic Surgery
DX: M23.91 Unspecified internal derangement of right knee (principal)
CPT/HCPCS: 73721

== ENCOUNTER 2023-02-22 11:35 | Outpatient (AMB) | payer OTHER, SELFPAY ==
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
== END 2023-02-22 12:10 | disposition home or self-care (01) ==
PROVIDERS: PCP Internal Medicine; Visit Provider Orthopaedic Surgery
DX: S83.249A Other tear of medial meniscus, current injury, unspecified knee, initial encounter (principal)
CPT/HCPCS: 99214

== ENCOUNTER → 2023-02-22 11:35 | Outpatient (BNVA) | payer OTHER, SELFPAY | PROVIDERS: PCP Internal Medicine; Visit Provider Orthopaedic Surgery | DX: S83.249D Other tear of medial meniscus, current injury, unspecified knee, subsequent encounter (principal) | CPT/HCPCS: 99212 ==

== ENCOUNTER 2023-04-19 12:29 | Outpatient (REF) | payer OTHER, SELFPAY ==
--- NOTE | ~2023-04-19 | MM_ITS ---
EXAMINATION: MM SCREENING DIGITAL BREAST TOMOSYNTHESIS, BILATERAL CLINICAL INFORMATION: Screening. Asymptomatic. History of left breast lumpectomy upper slightly outer quadrant anterior one third (epithelial proliferative lesion with atypia). Family history breast cancer, sister at age 35. COMPARISON: Mammography: 09/07/2022, 04/13/2020. Outside imaging [facility]: Mammography 03/26/2018, 03/20/2018, targeted right breast ultrasound 11/22/2018. TECHNIQUE: Digital breast tomosynthesis is performed in both the craniocaudal and mediolateral oblique views along with computer-aided detection (CAD). Synthesized 2D images are generated from the tomosynthesis. Added left MLO view was included. FINDINGS: There are scattered areas of fibroglandular density (ACR BI-RADS breast composition Category b). Post lumpectomy changes upper outer left breast anterior one third. Parenchymal pattern is otherwise similar to previous outside exam. Scattered small benign-appearing nodular asymmetries are stable, including the dominant nodule for follow-up mid 2:30 o'clock position right breast measuring just under 1 cm average dimension. There is no architectural abnormality or developing density. No abnormal calcifications. There are 2 biopsy clip markers lower inner right breast. The axilla and skin contours are unremarkable. MM/MM tomosynthesis screening BI IMPRESSION: No mammographic evidence of malignancy. Stable benign findings. ASSESSMENT: BI-RADS BI-RADS 2 - Benign Findings RECOMMENDATION: Routine annual mammography screening. 1 year F/U This examination should not preclude the clinical evaluation of a suspicious palpable abnormality. This patient's information was entered into a reminder system with a target due date for their next mammogram.
== END 2023-04-19 12:30 | disposition home or self-care (01) ==
LOC: HO.MAMMO 12:29
PROVIDERS: PCP Internal Medicine; Visit Provider Internal Medicine
DX: Z12.31 Encounter for screening mammogram for malignant neoplasm of breast (principal)
CPT/HCPCS: 77063; 77067

== ENCOUNTER → 2023-04-19 12:30 | Outpatient (BNV) | payer OTHER, SELFPAY | PROVIDERS: PCP Internal Medicine; Visit Provider Radiology Diagnostic Radiology | DX: Z12.31 Encounter for screening mammogram for malignant neoplasm of breast (principal) | CPT/HCPCS: 77063; 77067 ==

== ENCOUNTER 2023-05-31 12:34 | Outpatient (AMB) | payer OTHER, SELFPAY ==
[2023-05-31 12:40] VITALS: BMI 40.2
--- NOTE | 2023-05-31 12:40 | MHC.OFFVIS ---
Vital Signs 05/31/23 12:40 Height 5 ft 7 in Weight 257 lb BMI 40.2 Intake Visit Reasons: Preop RT knee , MMR 06/06/23 NE Intake Note: Shaniqua is a 62 year old female who presents today for a pre op appointment for her RT knee , MMR 06/06/23 NE. Allergies No Known Allergies Allergy (Verified 05/31/23 12:40) HPI HPI Preop RT knee , MMR 06/06/23 NE: Details: 62-year-old female who presents in the office today for her preoperative history and physical exam prior to a right knee arthroscopy to be performed on 06/06/[address] Owen Traore. Patient has no known allergy history. Patient is currently taking, as follows: - Acyclovir topical 6XD -Amlodipine 10 mg PO daily -Aspirin 81 mg PO daily -Benzonatate 200 mg PO TID PRN -Clotrimazole-betamethasone 1-0.05% topical BID PRN -Diclofenac sodium 75 mg PO BID PRN -Hydroxyzine HCI 25 mg PO TID PRN -Loratadine 10 mg PO Daily PRN -Losartan 100 mg PO daily -Metoprolol succinate ER 100 mg PO Daily -Naproxen 500 mg PO BID PRN -Nicotine 0 mg PO -Pantoprazole 40 mg PO Daily -Trazodone 25 ? 50 mg PO bedtime PRN -Ventolin HFA 90 mcg/actuation 2 puffs inhalation Q6H PRN Patient has a medical history, as follows: -Vulvar mass; right labia majora -Anxiety -Hypercholesterolemia -Right breast mass -GERD -Mobid obesity; BMI as of 05/31/2023 40.2 -Asthma -Hypertension -PTSD Patient has a surgical history, as follows: -Hx of breast lump/mass excision -Hx of tubal ligation Patient has a social history, as follows: -Alcohol: Wine, few time monthly -Tobacco: Cigarette, 3 per day PFSH Medical History Allergic rhinitis Post traumatic stress disorder (PTSD) Anxiety COVID-19 Low back pain Pure hypercholesterolemia Breast mass, right GERD without esophagitis Morbid obesity with BMI of 40.0-44.9, adult Normal colonoscopy (~2014) Asthma Benign essential hypertension Surgical History History of breast lump/mass excision History of tubal ligation Family History Mother Diabetes mellitus Hypertension Asthma Endometrial cancer Sister Lymphoma Sarcoma Breast cancer Social History Housing: Apartment Alcohol intake: current Alcohol intake frequency: a few times a month Alcohol type: wine Patient Tobacco Use Status: Current everyday Tobacco user Tobacco use type: Cigarette Cigarettes Per Day: 3 e-Cigarette/Vaping Use: Never Used Second Hand Smoke Exposure: Yes service: No Current occupational status: unemployed Cognitive needs: No Hearing needs: No Vision needs: Yes (Reading glasses) Female Reproductive History Menstrual Age of Menarche: 16 Review of Systems Const All systems reviewed & are unremarkable except as noted in HPI and below Physical Exam Vital Signs: BMI result Body Mass Index 40.2 Const General: cooperative, healthy appearing, comfortable, no acute distress, well developed, alert and awake Orientation/consciousness: patient oriented x3 HEENT Head: Yes normal to inspection, Yes normocephalic and Yes atraumatic Eyes General: appearance normal, both eyes and all related structures EOM: EOMs intact bilaterally Neck Neck: Yes normal visual inspection and Yes no lymphadenopathy Resp Effort & Inspection: normal respiratory effort and able to speak in complete sentences Cardio Jugular venous distension: no JVD Rate: regular rate Peripheral pulses: Peripheral pulses 2+ throughout GI Inspection: Yes normal to inspection Palpation (GI): Soft to palpation Skin General skin exam: no rashes or lesions noted Rashes: no rashes Neuro General: patient oriented x3 Extrem Other: Right knee: Skin is clean, dry, and intact. TTP medial joint line + steinmens + effusion Psych Appearance: grossly normal Mental Status: mental status grossly normal Affect: normal affect Attitude: cooperative Assessment & Plan Assessment & Plan (1) Medial meniscus tear: Code(s): S83.249A - Other tear of medial meniscus, current injury, unspecified knee, initial encounter Category: Medical Qualifiers: Encounter type: subsequent encounter Laterality: right Meniscus tear of knee type: unspecified type Tear current or old: current Qualified Code(s): S83.241D - Other tear of medial meniscus, current injury, right knee, subsequent encounter Plan Ms. Ozzy Escobar is a 62-year-old female who presents in the office today for her preoperative history and physical exam prior to a right knee arthroscopy to be performed on 06/06/[address] Owen Traore. Patient has no known allergy history. Patient is currently taking, as follows: - Acyclovir topical 6XD -Amlodipine 10 mg PO daily -Aspirin 81 mg PO daily -Benzonatate 200 mg PO TID PRN -Clotrimazole-betamethasone 1-0.05% topical BID PRN -Diclofenac sodium 75 mg PO BID PRN -Hydroxyzine HCI 25 mg PO TID PRN -Loratadine 10 mg PO Daily PRN -Losartan 100 mg PO daily -Metoprolol succinate ER 100 mg PO Daily -Naproxen 500 mg PO BID PRN -Nicotine 0 mg PO -Pantoprazole 40 mg PO Daily -Trazodone 25 ? 50 mg PO bedtime PRN -Ventolin HFA 90 mcg/actuation 2 puffs inhalation Q6H PRN Patient has a medical history, as follows: -Vulvar mass; right labia majora -Anxiety -Hypercholesterolemia -Right breast mass -GERD -Mobid obesity; BMI as of 05/31/2023 40.2 -Asthma -Hypertension -PTSD Patient has a surgical history, as follows: -Hx of breast lump/mass excision -Hx of tubal ligation Patient has a social history, as follows: -Alcohol: Wine, few time monthly -Tobacco: Cigarette, 3 per day I discussed in detail the procedure and what to expect pre and post operatively. We discussed the risks, benefits and alternatives to the surgery and the rehabilitation course. The risks include infection, bleeding, nerve injury, ongoing pain, swelling, and stiffness, perioperative risk of injury to bones and soft tissues, and blood clots. I have answered all questions and with their understanding they have consented to move forward with a right knee arthroscopy to be performed on 06/06/[address] Owen Traore. Post operative medications were sent to the pharmacy, Oxycodone-acetaminophen 5-325 mg (Percocet) PO Q4-6H PRN, quantity 42 tabs for 7 days, while in the office today. The patient was instructed that she should obtain the prescription prior to surgery but should not consume until after the procedure; as these should only be taken for post operative pain management. Should the patient take these medications before surgery, a refill will not be sent to the pharmacy until their scheduled refill date. Follow-up will be at the post operative appointment on 06/12/2023 at 1:00 pm, or sooner if needed. Orders: Orders PT Evaluation and Treatment Today M23.91 - Unspecified internal derangement of right knee, S83.241D - Other tear of medial meniscus, current injury, right knee, subsequent encounter Patient Instructions: Scribed by Laura Smith medical equipment repair technician, for Lottie Gordon PA-C on 05/31/2023 at 12:38 pm, EST. Coding Level of Care Code Global (99622) Diagnoses Tear of medial meniscus of right knee, current, unspecified tear type, subsequent encounter S83.241D Encounter type: subsequent encounter Laterality: right Meniscus tear of knee type: unspecified type Tear current or old: current
== END 2023-05-31 13:18 | disposition home or self-care (01) ==
PROVIDERS: PCP Internal Medicine; Visit Provider Physician Assistant
DX: S83.241D Other tear of medial meniscus, current injury, right knee, subsequent encounter (principal)
CPT/HCPCS: 99024

== ENCOUNTER → 2023-05-31 12:34 | Outpatient (BNVA) | payer OTHER, SELFPAY | PROVIDERS: PCP Internal Medicine; Visit Provider Physician Assistant | DX: S83.241D Other tear of medial meniscus, current injury, right knee, subsequent encounter (principal); I10 Essential (primary) hypertension; Z79.82 Long term (current) use of aspirin; Z79.899 Other long term (current) drug therapy | CPT/HCPCS: 99212 ==

== ENCOUNTER 2023-06-06 08:13 | Day surgery (SDC) | payer OTHER, SELFPAY ==
--- NOTE | 2023-06-04 14:44 | P.CONAN_ITS ---
Documented by User: Allyn Parson NP 06/04/23 14:45 HPI - Anesthesia Eval Consult details Narrative: 62yo F for Right Knee Arthroscopy,with medial meniscal repair PMFSH Active Problems Active Problems: All Active Problems Medial meniscus tear (Acute) Internal derangement of right knee (Acute) Perimenopausal symptoms (Acute) Fungal infection of the groin (Acute) Vulvar mass (Acute) Well woman exam with routine gynecological exam (Acute) Allergic rhinitis (Acute) Cervical cancer screening (Acute) Cold sore (Acute) Right knee pain (Acute) Intermittent chest pain (Acute) Post traumatic stress disorder (PTSD) (Acute) Anxiety (Acute) Encounter to discuss test results (Acute) Low back pain (Acute) Pure hypercholesterolemia (Acute) Breast mass, right (Acute) GERD without esophagitis (Acute) Breast cancer screening (Acute) Morbid obesity with BMI of 40.0-44.9, adult (Acute) Annual physical exam (Acute) Asthma (Acute) Benign essential hypertension (Acute) Past Medical History Medical History Allergic rhinitis Post traumatic stress disorder (PTSD) Anxiety COVID-19 Low back pain Pure hypercholesterolemia Breast mass, right GERD without esophagitis Morbid obesity with BMI of 40.0-44.9, adult Normal colonoscopy (~2014) Asthma Benign essential hypertension Family History Family History Mother Diabetes mellitus Hypertension Asthma Endometrial cancer Sister Lymphoma Sarcoma Breast cancer Surgical History Surgical History (Updated 06/06/23 @ 08:33 by Franca Castillo RN) History of breast lump/mass excision History of tubal ligation Social History Social History Housing: Apartment Alcohol intake: current Alcohol intake frequency: a few times a month Alcohol type: wine Patient Tobacco Use Status: Current everyday Tobacco user Tobacco use type: Cigarette Cigarettes Per Day: 5 e-Cigarette/Vaping Use: Never Used Second Hand Smoke Exposure: Yes Use of substances other than those prescribed or required for medical reasons: No Are you DNR?: No Advance Directives: No Advance Directives Information Provided: Yes service: No Current occupational status: unemployed Cognitive needs: No Hearing needs: No Vision needs: Yes (Reading glasses) Meds Allergies Allergy/AdvReac Type Severity Reaction Status Date / Time No Known Allergies Allergy Verified 06/06/23 08:33 Home Medications ?Medication ?Instructions ?Recorded ?Confirmed ?Last Taken ?Type trazodone 50 mg tablet 25 - 50 mg PO BEDTIME PRN Insomnia 06/28/22 06/06/23 Unknown History prazosin 1 mg capsule 1 mg PO BEDTIME 05/31/23 06/06/23 Unknown History venlafaxine 37.5 mg tablet 37.5 mg PO DAILY 05/31/23 06/06/23 Unknown History metoprolol succinate 100 mg 100 mg PO BEDTIME 06/06/23 06/06/23 Unknown History tablet,extended release 24 hr Assessment and Plan Assessment Anesthesia Assessment: Chart Reviewed Documented by User: Christian Banks MD 06/06/23 09:06 [facility], [facility] Past Medical History Medical History Allergic rhinitis Post traumatic stress disorder (PTSD) Anxiety COVID-19 Low back pain Pure hypercholesterolemia Breast mass, right GERD without esophagitis Morbid obesity with BMI of 40.0-44.9, adult Normal colonoscopy (~2014) Asthma Benign essential hypertension Family History Family History Mother Diabetes mellitus Hypertension Asthma Endometrial cancer Sister Lymphoma Sarcoma Breast cancer Family history of problems with anesthesia: No Surgical History Surgical History (Updated 06/06/23 @ 08:33 by Franca Castillo RN) History of breast lump/mass excision History of tubal ligation History of Problems with Anesthesia: No Social History Social History Housing: Apartment Alcohol intake: current Alcohol intake frequency: a few times a month Alcohol type: wine Patient Tobacco Use Status: Current everyday Tobacco user Tobacco use type: Cigarette Cigarettes Per Day: 5 e-Cigarette/Vaping Use: Never Used Second Hand Smoke Exposure: Yes Use of substances other than those prescribed or required for medical reasons: No Are you DNR?: No Advance Directives: No Advance Directives Information Provided: Yes service: No Current occupational status: unemployed Cognitive needs: No Hearing needs: No Vision needs: Yes (Reading glasses) Meds Allergies Allergy/AdvReac Type Severity Reaction Status Date / Time No Known Allergies Allergy Verified 06/06/23 08:33 Home Medications ?Medication ?Instructions ?Recorded ?Confirmed ?Last Taken ?Type trazodone 50 mg tablet 25 - 50 mg PO BEDTIME PRN Insomnia 06/28/22 06/06/23 Unknown History prazosin 1 mg capsule 1 mg PO BEDTIME 05/31/23 06/06/23 Unknown History venlafaxine 37.5 mg tablet 37.5 mg PO DAILY 05/31/23 06/06/23 Unknown History metoprolol succinate 100 mg 100 mg PO BEDTIME 06/06/23 06/06/23 Unknown History tablet,extended release 24 hr Exam Airway Mallampati Class: III TM Dist: >3cm Neck ROM: Full Assessment and Plan Assessment Anesthesia Assessment: Anesthesia Plan Discussed Final Anesthetic Review Family History of Problems with Anesthesia: No History of Problems with Anesthesia: No NPO: Yes ASA Class: III Final Preanesthetic Review: No Changes in Pt Med Stat, Meds/Allgs Chart Reviewed, Consent Obtained/Reviewed and Anes Risks/Benef Reviewed Patient Risk: Intermediate Procedure Risk: Low Anesthetic Plan Anesthetic Plan: GA Disposition: Standard PACU
[2023-06-06] VITALS (8 sets, daily range): BP systolic 127–147; BP diastolic 62–93; PULSE 65–88; RESP 16; TEMP 36.1–36.4; O2SAT 96–100; BMI 42.9
[2023-06-06] MEDS: Lactated Ringers 1,000 ML 100 ML IVCONT (08:56)
--- NOTE | 2023-06-06 09:22 | MHC.SHP ---
Pre-Procedural Eval Section A - 24 Hr Update-Section A only Date of Service: 06/06/23 The patient is an INPATIENT: No Changes since office visit: No Cold of Flu in the past 2 weeks, No New Medical Problems, No Changes in Medication and No Patient answered all questions The patient has been examined within 24 hours of the surgical procedure. The History & Physical has been completed within 30 days and I have reviewed it.: Yes Section B - Complete if H&P > 30 days Chief Complaint: Other tear of medial meniscus, current injury, Allergies: Allergies Allergy/AdvReac Type Severity Reaction Status Date / Time No Known Allergies Allergy Verified 06/06/23 08:33 Plan I have reviewed the history and physical and performed a pertinent physical examination on my patient. No changes have occurred unless specified. Time Spent With Patient Time: Total time managing care of this patient today ____ minutes.
--- NOTE | 2023-06-06 10:03 | P.BOP_ITS ---
Brief Operative Note Date of Service: 06/06/23 Pre-op diagnosis: Right knee MMT Post-op diagnosis: same Procedure: Right knee partial medial meniscectomy Surgeon: Owen Traore MD Anesthesia: GETA Was an International Relations Professor used for this Procedure?: No Estimated blood loss (mL): 1 Tourniquet time (min): 14 IV fluids (mL): 300 Pathology: none sent Condition: stable Disposition: PACU
[2023-06-06] MEDS: fentaNYL citrate/PF 100 MCG/2 ML VIAL 50 MCG IVPUSH (10:49)
--- NOTE | 2023-06-08 15:21 | W.PM.OPN ---
Operative Note Operative Note Date of Service: 06/06/23 Narrative: Date of Service: 06/06/23 Pre-op diagnosis: Right knee MMT Post-op diagnosis: same Procedure: Right knee partial medial meniscectomy Surgeon: Owen Traore MD Anesthesia: GETA Was an Electrolysist used for this Procedure?: No Estimated blood loss (mL): 1 Tourniquet time (min): 14 IV fluids (mL): 300 Pathology: none sent Condition: stable Disposition: PACU Procedure in detail: Patient was brought to the operating room placed supine on the arthroscopic table and prepped and draped in standard sterile fashion. A time-out was called to identify proper site proper procedure proper surgeon and IV antibiotics per weight were administered. I began by exsanguinating the limb and insufflating tourniquet to 300 mm Hg. Then made a standard anterolateral stab incision. The knee was insufflated with water and 30 degree arthroscope was placed. There was grade 1/2 fibrillations of the patella but overall suprapatellar pouch and the gutters were clean. I descended into the medial compartment where I made my medial portal under direct visualization. There was obvious of complex tear of the posterior horn of the medial meniscus. The root was intact and there was grade 2 changes in the tibial plateau and less so in the MFC. I used a combination of biter shaver and cautery to remove unstable portions of the meniscus. Approximately 30% meniscal volume was removed. Once I was satisfied with this the ACL was examined and found to be intact and the lateral compartment also was without the need for intervention. I then removed all instrumentation and closed the portals with skin glue. 25 mL of 2% Marcaine with epinephrine was injected into the joint and the surrounding soft tissues. Patient was then placed in sterile dressing extubated brought recovery room stable condition. There were no known complications.
== END 2023-06-06 12:04 | disposition home or self-care (01) ==
LOC: HO.SSS 08:15
PROVIDERS: PCP Internal Medicine; Visit Provider Orthopaedic Surgery
PROC: (CPT 29870; principal; 2023-06-06 10:30)
DX: S83.231A Complex tear of medial meniscus, current injury, right knee, initial encounter (principal); X58.XXXA Exposure to other specified factors, initial encounter; Y93.9 Activity, unspecified; Y92.9 Unspecified place or not applicable; Y99.8 Other external cause status; M17.11 Unilateral primary osteoarthritis, right knee; M23.91 Unspecified internal derangement of right knee; I10 Essential (primary) hypertension; J45.909 Unspecified asthma, uncomplicated; E78.00 Pure hypercholesterolemia, unspecified; E66.01 Morbid (severe) obesity due to excess calories; Z68.41 Body mass index [BMI] 40.0-44.9, adult; F41.9 Anxiety disorder, unspecified; F43.10 Post-traumatic stress disorder, unspecified; Z79.82 Long term (current) use of aspirin; Z79.899 Other long term (current) drug therapy; Z79.1 Long term (current) use of non-steroidal anti-inflammatories (NSAID); F17.210 Nicotine dependence, cigarettes, uncomplicated; Z56.0 Unemployment, unspecified
CPT/HCPCS: 29881; J0131; J0171; J0690; J2250; J2704; J2795; J3010

== ENCOUNTER → 2023-06-06 08:13 | Outpatient (BNV) | payer OTHER, SELFPAY | PROVIDERS: PCP Internal Medicine; Visit Provider Orthopaedic Surgery | DX: S83.231A Complex tear of medial meniscus, current injury, right knee, initial encounter (principal) | CPT/HCPCS: 29881 ==

== ENCOUNTER 2023-06-12 13:04 | Outpatient (AMB) | payer OTHER, SELFPAY ==
[2023-06-12 13:11] VITALS: BMI 42.9
--- NOTE | 2023-06-12 13:11 | MHC.OFFVIS ---
Vital Signs 06/12/23 13:11 Height 5 ft 6 in Weight 266 lb BMI 42.9 Intake Visit Reasons: PO RT knee , MMR 06/06/23 NE Intake Note: Shaniqua is a 62 year old female who presents today for a post op appointment s/p RT knee , MMR 06/06/23 NE. Patient reports constant discomfort, worse at night, 7-8 on 0-10 pain scale. She is no longer taking oxycodone due to drowsiness. She is taking Diclofenac that was prescribed for her back, with relief. 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 Traore. While in the office the patient reports discomfort that increases at night. She claims her pain is a 7-8/10. PFSH Medical History (Updated 06/12/23 @ 14:50 by Laura Smith) Allergic rhinitis Post traumatic stress disorder (PTSD) Anxiety COVID-19 Low back pain Pure hypercholesterolemia Breast mass, right GERD without esophagitis Morbid obesity with BMI of 40.0-44.9, adult Normal colonoscopy (~2014) Asthma Benign essential hypertension Surgical History (Updated 06/06/23 @ 08:33 by Franca Castillo RN) History of breast lump/mass excision History of tubal ligation Family History Mother Diabetes mellitus Hypertension Asthma Endometrial cancer Sister Lymphoma Sarcoma Breast cancer Social History Housing: Apartment Alcohol intake: current Alcohol intake frequency: a few times a month Alcohol type: wine Patient Tobacco Use Status: Current everyday Tobacco user Tobacco use type: Cigarette Cigarettes Per Day: 5 e-Cigarette/Vaping Use: Never Used Second Hand Smoke Exposure: Yes service: No Current occupational status: unemployed Cognitive needs: No Hearing needs: No Vision needs: Yes (Reading glasses) Female Reproductive History Menstrual Age of Menarche: 16 Review of Systems Const All systems reviewed & are unremarkable except as noted in HPI and below Physical Exam Vital Signs: BMI result Body Mass Index 42.9 Const General: cooperative, healthy appearing and no acute distress Resp Effort & Inspection: normal respiratory effort and able to speak in complete sentences Cardio Rate: regular rate Peripheral pulses: Peripheral pulses 2+ throughout GI Palpation (GI): Soft to palpation Skin Lesions: no lesions Rashes: no rashes Extrem Other: Right knee: Incision site is clean, dry, and intact. Steri-stripes intact. No surrounding erythema or drainage. No signs of infection. ROM is 0-90 degrees. NVI. Assessment & Plan Assessment & Plan (1) Medial meniscus tear: Comment: Right knee partial medial meniscectomy 06/06/2023 Dr. Traore Code(s): S83.249A - Other tear of medial meniscus, current injury, unspecified knee, initial encounter Category: Medical Qualifiers: Encounter type: subsequent encounter Laterality: right Meniscus tear of knee type: unspecified type Tear current or old: current Qualified Code(s): S83.241D - Other tear of medial meniscus, current injury, right knee, subsequent encounter Plan Ms. Ozzy Escobar is a 62-year-old female who presents in the office today 6 days status post right knee partial medial meniscectomy, which was performed on 06/06/[address] Traore. While in the office the patient reports discomfort that increases at night. She claims her pain is a 7-8/10. Steri-stripes were removed, and new steri-stripes were applied. She is going to attend PT to focus on ROM. I also recommended Motrin for inflammation. Follow up will be in 4 weeks for a ROM check, or sooner if needed. Patient Instructions: Scribed by Laura Smith medical staff services manager, for Lottie Gordon PA-C on 06/12/2023 at 1:07 pm, EST. Coding Level of Care Code Global (25962) Diagnoses Tear of medial meniscus of right knee, current, unspecified tear type, subsequent encounter S83.241D Encounter type: subsequent encounter Laterality: right Meniscus tear of knee type: unspecified type Tear current or old: current
== END 2023-06-12 14:08 | disposition home or self-care (01) ==
PROVIDERS: PCP Internal Medicine; Visit Provider Physician Assistant
DX: S83.241D Other tear of medial meniscus, current injury, right knee, subsequent encounter (principal)
CPT/HCPCS: 99024

== ENCOUNTER → 2023-06-12 13:04 | Outpatient (BNVA) | payer OTHER, SELFPAY | PROVIDERS: PCP Internal Medicine; Visit Provider Physician Assistant | DX: S83.241D Other tear of medial meniscus, current injury, right knee, subsequent encounter (principal) | CPT/HCPCS: 99212 ==

== ENCOUNTER 2023-07-12 13:25 | Outpatient (AMB) | payer OTHER, SELFPAY ==
--- NOTE | 2023-07-12 13:26 | MHC.OFFVIS ---
Vital Signs 07/12/23 13:27 Height 5 ft 6 in Weight 266 lb BMI 42.9 Intake Visit Reasons: PO RT knee , MMR 06/06/23 NE Intake Note: Shaniqua is a 62 year old female who presents today for a post op appointment s/p RT knee , MM 06/06/23 NE. Patient continues to have some pain, continues to work with PT. 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 She is doing well with no pain. She is happy with her progress. She is doing PT. [facility] Medical History Allergic rhinitis Post traumatic stress disorder (PTSD) Anxiety COVID-19 Low back pain Pure hypercholesterolemia Breast mass, right GERD without esophagitis Morbid obesity with BMI of 40.0-44.9, adult Normal colonoscopy (~2014) Asthma Benign essential hypertension Surgical History History of breast lump/mass excision History of tubal ligation Family History Mother Diabetes mellitus Hypertension Asthma Endometrial cancer Sister Lymphoma Sarcoma Breast cancer Social History Housing: Apartment Alcohol intake: current Alcohol intake frequency: a few times a month Alcohol type: wine Patient Tobacco Use Status: Current everyday Tobacco user Tobacco use type: Cigarette Cigarettes Per Day: 5 e-Cigarette/Vaping Use: Never Used Second Hand Smoke Exposure: Yes service: No Current occupational status: unemployed Cognitive needs: No Hearing needs: No Vision needs: Yes (Reading glasses) Female Reproductive History Menstrual Age of Menarche: 16 Physical Exam Vital Signs: BMI result Body Mass Index 42.9 Extrem Other: potals c/d/i 0-130 no effusion Assessment & Plan Assessment & Plan (1) Medial meniscus tear: Comment: Right knee partial medial meniscectomy 06/06/2023 Dr. Traore Code(s): S83.249A - Other tear of medial meniscus, current injury, unspecified knee, initial encounter Category: Medical Qualifiers: Tear current or old: current Encounter type: subsequent encounter Meniscus tear of knee type: unspecified type Laterality: right Qualified Code(s): S83.241D - Other tear of medial meniscus, current injury, right knee, subsequent encounter Plan: s/p medial meniscectomy in settimg of mild-moderate knee OA. She is doing well overall and I recommend continued PT. She may f.u PRN Coding Level of Care Code Global (76189) Diagnoses Tear of medial meniscus of right knee, current, unspecified tear type, subsequent encounter S83.241D Tear current or old: current Encounter type: subsequent encounter Meniscus tear of knee type: unspecified type Laterality: right
[2023-07-12 13:27] VITALS: BMI 42.9
== END 2023-07-12 14:15 | disposition home or self-care (01) ==
PROVIDERS: PCP Internal Medicine; Visit Provider Orthopaedic Surgery
DX: S83.241D Other tear of medial meniscus, current injury, right knee, subsequent encounter (principal)
CPT/HCPCS: 99024

== ENCOUNTER → 2023-07-12 13:25 | Outpatient (BNVA) | payer OTHER, SELFPAY | PROVIDERS: PCP Internal Medicine; Visit Provider Orthopaedic Surgery | DX: S83.241D Other tear of medial meniscus, current injury, right knee, subsequent encounter (principal); X58.XXXD Exposure to other specified factors, subsequent encounter | CPT/HCPCS: 99212 ==

== ENCOUNTER 2023-07-26 11:00 | Outpatient (RCR) | payer OTHER, SELFPAY ==
--- NOTE | 2023-06-19 13:21 | MHC.PT.EP ---
[facility] [place] Office [place] Office [place] Office [address] Merrill Muhammad [address] [phone] F: [phone] F: [phone] F: [phone] F: [phone] Physical Therapy Plan of Care Date of Evaluation: 06/19/23 Date of Surgery: 06/06/23 Diagnosis: R MEDIAL MENISCECTOMY 06/06/23 Assessment: Pt IS 62 YO F REFERRED TO PT FROM [facility]TH[facility] ([facility]) S/P R MEDIAL MENISCECTOMY BY DR HART ON 06/06/23. HAS SEEN ORTHO FOR 1 WK FU WITH REMOVAL OF STERI STRIPS AND RE APPLICATION OF NEW STERI STRIPS. REPORTS PAIN R KNEE DISTAL QUAD, AND BRUISING R CALF (Pt WITH LEGGINGS ON..ED TO WEAR/BRING SHORTS NEXT SESSION). Pt WITH LIMITED R KNEE ROM AND LIMITED R LE STRENGTH, SWELLING NOTED, ANTALGIC GT WITH ST CANE. SHOUD BENEFIT FROM PT TO ADDRESS THESE ISSUES Frequency and Duration: The patient will be seen 2X/WK X 8 WKS Short Term Goals: 1. INCREASED AWARENESS KNEE CARE 2, IMPROVED GT PATTERN WITH CANE OR NO AD 3. R KNEE ROM 0-125 4. Pt ABLE TO PERF SLR R WITHOUT QUAD LAG X 2 SETS OF 10 Senior Care Goals: 1. I HEP WITH DC EX PLAN 2. DECREASED R KNEE SWELLING REPORTED 3. DECREASED R KNEE PAIN AT LEAST 50% WITH ADLS 4, IMPROVED LEFI (4/80 SOC) Treatment Plan: Modalities to reduce pain, spasms and effusion. Manual therapy to restore motion and function. Therapeutic exercise to improve strength and flexibility. Neuromuscular re-education for posture and balance. Therapeutic activities to return to functional activities of daily living. Electronically signed by: PAUL BLAND PT Please sign and return to therapist. Thank you for your referral.
--- NOTE | 2023-09-14 13:01 | MHC.PT.DC ---
[facility] [place] [facility] [place] [facility] [place] [facility] [address] [place] [address] [phone] F: [phone] F: [phone] F: [phone] F: [phone] Physical Therapy Discharge Report Diagnosis: R MEDIAL MENISCECTOMY 06/06/23 Date of Surgery: 06/06/23 Date of Evaluation: 06/19/23 Date of Discharge: 09/14/23 Treatments to Date: 7 Cancellations to Date: No Shows to Date: Discharge Status: Patient Elected to Stop Discharge Summary: PER LAST APPT ASSESSMENT ON 07/26/23 BY VALDEMAR MARES PTA 'Pt continues to do well progressing per protocol. No increase in pain noted with above exercises however decreased muscle endurance and requiring freq rest breaks throughout.' Pt CANCELLED LAST SCHEDULED VISIT BECAUSE SHE HURT HER BACK (PER NOTE). NO FURTHER APPTS SCHEDULED Electronically signed by: PAUL BLAND PT Please sign and return to therapist. Thank you for your referral.
== END 2023-09-14 13:01 | disposition home or self-care (01) ==
LOC: HO.PT 11:00
PROVIDERS: PCP Internal Medicine; Visit Provider Physician Assistant
DX: M23.91 Unspecified internal derangement of right knee (principal); S83.241D Other tear of medial meniscus, current injury, right knee, subsequent encounter
CPT/HCPCS: 97110; 97140; 97161; 97530; 97535

== ENCOUNTER 2023-11-09 13:54 | Emergency (ER) | payer OTHER, SELFPAY ==
--- NOTE | ~2023-11-09 | XR_ITS ---
EXAMINATION: XR CHEST CLINICAL INFORMATION: Left-sided chest pain. COMPARISON: None available. TECHNIQUE: 2 views of the chest were obtained. FINDINGS: Normal appearance of the cardiomediastinal silhouette. Slightly increased diffuse interstitial markings. No consolidation. No pleural effusion or pneumothorax. Thoracic spondylosis. No acute osseous findings. XR/XR chest 2V IMPRESSION: Subjective slightly increased interstitial markings that could indicate small airways disease or atypical/viral infection in the appropriate clinical context. No consolidation or pleural effusion. Electronically signed by: Iman Ewing MD 11/09/2023 03:45 PM EDT
--- NOTE | 2023-11-09 13:55 | ECG_ITS ---
Test Reason : cp Blood Pressure : / mmHG Vent. Rate : 073 BPM Atrial Rate : 073 BPM P-R Int : 148 ms QRS Dur : 084 ms QT Int : 378 ms P-R-T Axes : 006 -08 027 degrees QTc Int : 416 ms Normal sinus rhythm Normal ECG No previous ECGs available Referred By: Yessy Jiang Electronically Signed By:ELIDIA SEPULVEDA
[2023-11-09 14:12] VITALS: BP 125/80; PULSE 79; RESP 16; TEMP 36.6; O2SAT 98; BMI 43.3
--- NOTE | 2023-11-09 14:12 | ED_ITS ---
HPI - Chest Pain General Chief Complaint: Chest Pain Stated Complaint: chest pain Time Seen by Provider: 11/09/23 15:02 Source: patient Mode of arrival: ambulatory Limitations: no limitations History of Present Illness ED Provider: Nanette Atwood PA-C HPI narrative: 63 yof presents with 2-3 days of left sided chest pain. States the pain does not radiate, is squeezing in quality and has become constant. States that the pain takes her breath away, denies dyspnea on exertion, orthopnea or cough. Says she is nauseous, has not vomited and feels lethargic. Denies numbness, tingling in extremities, dizziness, palpitations. MD complaint: chest pain and chest heaviness Onset (ago): day(s) Timing of current episode: constant Onset: during rest Pain radiation: none Severity: mild Quality: tightness and heaviness Relieving factors: nothing Exacerbating factors: nothing Associated symptoms: nausea Treatment prior to arrival: none Risk Factors Coronary artery disease risk factors: hypertension Related Data Home Medications ?Medication ?Instructions ?Recorded ?Confirmed trazodone 50 mg tablet 25 - 50 mg PO BEDTIME PRN Insomnia 06/28/22 06/06/23 prazosin 1 mg capsule 1 mg PO BEDTIME 05/31/23 06/06/23 venlafaxine 37.5 mg tablet 37.5 mg PO DAILY 05/31/23 06/06/23 Previous Rx's ?Medication ?Instructions ?Recorded hydroxyzine HCl 25 mg tablet 25 mg PO TID PRN anxiety 30 days 06/17/21 #90 tabs acyclovir 5 % topical ointment 1 appl topical 6XD 7 days #15 grams 02/08/22 loratadine 10 mg tablet 10 mg PO DAILY PRN allergy 06/22/22 symptoms 90 days #90 tabs clotrimazole-betamethasone 1 1 appl topical BID PRN itching 14 06/28/22 %-0.05 % topical cream days #45 grams CANE #1 ea 12/05/22 losartan 100 mg tablet 100 mg PO DAILY #90 tabs 05/18/23 amlodipine 10 mg tablet (Norvasc) 10 mg PO DAILY #90 tabs 06/07/23 aspirin 81 mg tablet,delayed 81 mg PO DAILY 90 days #90 tabs 06/07/23 release metoprolol succinate 100 mg 100 mg PO DAILY #90 tabs 08/15/23 tablet,extended release 24 hr pantoprazole 40 mg tablet,delayed 40 mg PO DAILY 90 days #90 tabs 08/15/23 release Ventolin HFA 90 mcg/actuation 2 puff inhalation Q6H PRN 10/10/23 aerosol inhaler (albuterol sulfate) shortness of breath or wheezing 30 days #18 grams diclofenac sodium 75 mg 75 mg PO BID PRN pain #60 tabs 10/28/23 tablet,delayed release Allergies Allergy/AdvReac Type Severity Reaction Status Date / Time No Known Allergies Allergy Verified 11/09/23 14:14 Review of Systems 2 Constitutional: Constitutional: Reports no additional constitutional complaints, Denies chills, Denies fever(s) and Denies night sweats Eyes: Eyes: Reports no additional eye complaints, Denies blurry vision, Denies change in vision, Denies diplopia, Denies eye discharge, Denies loss of vision and Denies eye pain ENT: Denies dizziness Cardiovascular: Cardiovascular: Reports no additional cardiovascular complaints, Reports chest pain, Reports chest pain at rest, Denies syncope, Denies rapid heart rate, Denies irregular heart rhythm, Denies lightheadedness, Denies Loss of Consciousness, Denies palpitations, Denies dyspnea and Denies dyspnea on exertion Respiratory: Respiratory: Reports no additional respiratory complaints, Denies dyspnea and Denies dyspnea on exertion Gastrointestinal: Gastrointestinal: Reports no additional gastrointestinal complaints, Denies abdominal pain, Denies melena, Denies hematochezia, Denies change in bowel habits and Denies change in stool character Genitourinary: Genitourinary: Denies hematuria, Denies urinary frequency, Denies dysuria, Denies urinary incontinence, Denies urinary hesitancy and Denies urinary urgency Musculoskeletal: Musculoskeletal: Reports no additional musculoskeletal complaints, Denies numbness and Denies tingling Neurologic: Denies dizziness, Denies syncope, Denies loss of vision, Denies numbness and Denies tingling Psychiatric: Psychiatric: Reports no additional psychiatric complaints Endocrine: Endocrine: Reports no additional endocrine complaints and Denies palpitations Hematologic/Lymphatic: Hematologic/Lymphatic: Reports no additional hematologic/lymphatic complaints Allergic/Immunologic: Allergic/Immunologic: Reports no additional allergic/immunologic complaints PMFSH Past Medical History Attestation statement: The following information was validated with the patient. Source: old records reviewed and nursing notes reviewed Medical History Allergic rhinitis Post traumatic stress disorder (PTSD) Anxiety COVID-19 Low back pain Pure hypercholesterolemia Breast mass, right GERD without esophagitis Morbid obesity with BMI of 40.0-44.9, adult Normal colonoscopy (~2014) Asthma Benign essential hypertension Surgical History History of breast lump/mass excision History of tubal ligation Family History Family History Mother Diabetes mellitus Hypertension Asthma Endometrial cancer Sister Lymphoma Sarcoma Breast cancer Social History Social History Housing: Apartment Alcohol intake: current Alcohol intake frequency: a few times a month Alcohol type: wine Patient Tobacco Use Status: Current everyday Tobacco user Tobacco use type: Cigarette Cigarettes Per Day: 5 e-Cigarette/Vaping Use: Never Used Second Hand Smoke Exposure: Yes Advance Directives: No Advance Directives Information Provided: No Do you have a plan to hurt others: No Plan service: No Current occupational status: unemployed Cognitive needs: No Hearing needs: No Vision needs: Yes (Reading glasses) Physical Exam 2 Vital Signs: Vital Signs: Last Vital Signs Temp 97.5 F 11/09/23 16:40 Pulse 77 11/09/23 16:40 Resp 18 11/09/23 16:40 BP 151/91 H 11/09/23 16:40 Pulse Ox 94 11/09/23 16:40 O2 Del Method Room Air 11/09/23 16:40 BMI result Body Mass Index 43.3 Const: General: cooperative, no acute distress, alert and awake Nutritional Appearance: well nourished Orientation/consciousness: patient oriented x3 Limitations: no limitations HEENT: Head: Yes normal to inspection and Yes atraumatic Ears: hearing grossly normal bilaterally and external ears normal General nose exam: Normal external nose present, no nasal discharge noted and no epistaxis Face and sinus: Yes normal facial exam, No abrasion and No laceration Mouth: Normal oral and palatal mucosa present, no drooling and no muffled voice Eyes: General: appearance normal, both eyes and all related structures P eriorbital: periorbital findings normal Eyelids: Yes eyelids normal C onjunctivae: conjunctivae normal Pupils: Equal, round and reactive pupils present EOM: EOMs intact bilaterally Neck: Neck: Yes normal visual inspection, Yes full ROM and Yes no lymphadenopathy Chest: Chest palpation & inspection: normal inspection of the chest Resp: Effort & Inspection: normal respiratory effort and able to speak in complete sentences Cardio: Jugular venous distension: no JVD Rate: regular rate Rhythm: r egular rhythm Heart sounds: S1 normal heart sound present and S2 normal heart sound present GI: Inspection: Yes normal to inspection Neuro: General: patient oriented x3 and moves all extremities Cranial nerves: Yes Equal, round and reactive pupils present Cognition (Neuro): n ormal cognition Extrem: General: Yes normal to inspection, Yes full ROM and Yes capillary refill normal Psych: Appearance: grossly normal Mental Status: mental status grossly normal Affect: normal affect Attitude: cooperative Thought process: N ormal thought process present Thought content: Normal thought content present Insight: Good insight present (Psych) Course Course Course Narrative: This is a Rapid Medical Examination (RME) performed by Jordon Jiang PA-C in triage. Full HPI, ROS, assessment and treatment plan per primary provider in the Main ED. 63 yo female hx of asthma, anxiety, PTSD, GERD, HTN here w/ intermittent left sided chest pain x2-3 days, occurring more frequently today. no change w/ deep breathing. assoc sob and nausea. no palpitations, sweats. reports recent travel to [place]. admits to chronic cough a night secondary to tobacco smoking. + no reproducible tenderness to chest wall. rrr. lungs clear. Plan: labs, ekg, cxr Medications Administered Discontinued Medications Generic Name Dose Route Start Last Admin Trade Name Freq PRN Reason Stop Dose Admin Ketorolac Tromethamine 15 mg 11/09/23 16:31 11/09/23 16:37 Ketorolac Tromethamine 15 Mg/Ml Vial IM 11/09/23 16:32 15 mg ONCE ONE Administration Medical Decision Making Medical Decision Making MDM Narrative: Patient is a 63 year old assigned female at with a history of HTN, GERD, hypercholesteremia, anxiety, PTSD, and intermittent chest pain presenting to the emergency department today with left sided chest pain. Patient's physical exam was unremarkable. Patient's blood work was unremarkable. Patient's EKG was unremarkable. Patient's chest x-ray showed no acute process. I explained my physical exam findings as well as all test results to the patient. I answered all questions asked by the patient. I stressed the importance of the patient taking her medication as directed (either prescribed or as the over the counter packaging recommends). I stressed the importance of the patient following up with her primary care provider. I stressed the importance of the patient returning to the emergency department immediately if her symptoms were to worsen or if she were to develop any dizziness, shortness of breath, difficulty breathing, chest pain, blurry vision, loss of vision, nausea, vomiting, abdominal pain, fever, chills, back pain, or any other complaints. Patient verbalized agreement and understanding with this treatment plan and discharge. Differential Diagnosis Differential Diagnoses: The differential diagnosis associated with the presentation includes NSTEMI STEMI Chest pain Costochondritis Atypical chest pain GERD Admission/Observation Consideration of admission/observation: Escalation of care including admission/observation considered Patient would have been admitted to the hospital had her work up had any findings where hospital admission was appropriate and her clinical presentation warranted hospital admission. Lab Data [facility] Lab Attestation statement: I reviewed the patient's lab results. My interpretation of these results are in the [facility] Rationale portion of this note. 11/09/23 14:51 11/09/23 14:52 Labs: Lab Results 11/09/23 11/09/23 11/09/23 Range/Units 14:47 14:51 14:52 WBC 6.0 (4.8-10.8) X10*3/uL RBC 5.10 (4.20-5.50) X10*6/uL Hgb 15.1 (12.0-16.0) g/dl Hct 43.7 (37.0-47.0) % MCV 85.7 (80.0-98.0) fL MCH 29.6 (27.0-33.0) pg MCHC 34.6 (31.0-35.0) g/dl RDW 13.0 (11.0-16.0) % Plt Count 231 (160-400) X10*3/uL MPV 10.1 (9.4-12.3) fL Immature Gran % (Auto) 0.2 (0.0-0.4) % Neut % (Auto) 58.9 (45-73) % Lymph % (Auto) 26.7 (20-40) % [place] % (Auto) 11.0 (2-11) % Eos % (Auto) 2.7 (0-4) % Baso % (Auto) 0.5 (0-2) % Lymph # (Auto) 1.6 (1.2-4.9) X10*3/uL [place] # (Auto) 0.7 (0.1-1.2) X10*3/uL Eos # (Auto) 0.2 (0.0-0.4) X10*3/uL Baso # (Auto) 0.0 (0.0-0.2) X10*3/uL Abs Immat Gran (auto) 0.01 (0.00-0.03) X10*3/uL Absolute Neuts (auto) 3.6 (2.0-8.3) x10*3/uL Absolute Nucleated RBC 0.000 (0.0-0.012) X10*3/uL Nucleated RBC % (auto) 0.0 (0.0-0.2) /100WBC PT 11.5 (10.9-12.4) SEC INR 1.0 (0.9-1.1) Sodium 141 (135-145) mmol/L Potassium 3.8 (3.3-5.1) mmol/L Chloride 107 (96-108) mmol/L Carbon Dioxide 28 (22-29) mmol/L Anion Gap 10 L (12-20) BUN 14 (9-16) mg/dL Creatinine 0.68 (0.5-1.4) mg/dL Estim Creat Clear Calc 115.6 Estimated GFR > 60 Random Glucose 82 (60-115) mg/dL Calcium 10.5 H (8.4-10.2) mg/dL Magnesium 2.0 (1.6-2.6) mg/dL Total Bilirubin 0.6 (0.0-1.0) mg/dL AST 30 (5-31) U/L ALT 37 H (0-31) U/L Alkaline Phosphatase 124 H (39-117) U/L Troponin I High Sens < 2.7 (<3.5-17.0) ng/L Total Protein 7.1 (6.5-8.0) g/dL Albumin 4.2 (3.5-5.0) g/dL Lipase 19 (8-78) U/L Influenza Type A (PCR) NEGATIVE (Negative) Influenza Type B (PCR) NEGATIVE (Negative) RSV RNA Qual (PCR) NEGATIVE (Negative) SARS-CoV-2 RNA (RT-PCR) NEGATIVE (Negative) Independent Interpretation I performed an independent interpretation of an: EKG and Plain X-Ray Interpretation: My interpretation is in agreement with the radiologist's impression of this imaging study. L EXAMINATION: XR CHEST CLINICAL INFORMATION: Left-sided chest pain. COMPARISON: None available. TECHNIQUE: 2 views of the chest were obtained. FINDINGS: Normal appearance of the cardiomediastinal silhouette. Slightly increased diffuse interstitial markings. No consolidation. No pleural effusion or pneumothorax. Thoracic spondylosis. No acute osseous findings. XR/XR chest 2V IMPRESSION: Subjective slightly increased interstitial markings that could indicate small airways disease or atypical/viral infection in the appropriate clinical context. No consolidation or pleural effusion. Electronically signed by: Iman Ewing MD 11/09/2023 03:45 PM EDT Dictated By: Iman Ewing Signed By: Electronically signed by Iman Ewing 11/09/23 1545 Vent. Rate: 073 BPM Atrial Rate: 073 BPM P-R Int: 148 ms QRS Dur: 084 ms QT Int: 378 ms P-R-T Axes: 006 -08 027 degrees QTc Int: 416 ms Normal sinus rhythm Normal ECG No previous ECGs available Referred By: Yessy Jiang Electronically Signed By:ELIDIA SEPULVEDA Dictated By: Elidia Costa DO Signed By: Electronically signed by Elidia Costa DO 11/09/23 1542 Radiology Impression Discussion of test interpretation with radiology: I have reviewed the radiologist's reading. Discharge Plan Discharge Clinical Impression: Atypical chest pain Patient Disposition: Home, Self-Care Instructions: Chest Pain (DC) Additional Instructions: Follow up with your primary care provider. Return to the emergency department immediately if your symptoms worsen or if you develop any dizziness, shortness of breath, difficulty breathing, chest pain, blurry vision, loss of vision, nausea, vomiting, abdominal pain, fever, chills, back pain, or any other complaints. Prescriptions: No Action hydroxyzine HCl 25 mg tablet 25 mg PO TID PRN (Reason: anxiety) 30 Days Qty: 90 2RF (DME) CANE See Rx Instructions .Route .MEDSUPPLY Qty: 1 0RF Rx Instructions: As directed losartan 100 mg tablet 100 mg PO DAILY Qty: 90 1RF aspirin 81 mg tablet,delayed release (DR/EC) 81 mg PO DAILY 90 Days Qty: 90 3RF amlodipine [Norvasc] 10 mg tablet 10 mg PO DAILY Qty: 90 3RF pantoprazole 40 mg tablet,delayed release (DR/EC) 40 mg PO DAILY 90 Days Qty: 90 1RF metoprolol succinate 100 mg tablet extended release 24 hr 100 mg PO DAILY Qty: 90 1RF albuterol sulfate [Ventolin HFA] 90 mcg/actuation HFA aerosol inhaler 2 puff inhalation Q6H PRN (Reason: shortness of breath or wheezing) 30 Days Qty: 18 0RF diclofenac sodium 75 mg tablet,delayed release (DR/EC) 75 mg PO BID PRN (Reason: pain) Qty: 60 0RF Rx Instructions: Take with food. DO NOT take Naproxen when taking Diclofenac acyclovir 5 % ointment 1 appl topical 6XD 7 Days Qty: 15 0RF loratadine 10 mg tablet 10 mg PO DAILY PRN (Reason: allergy symptoms) 90 Days Qty: 90 3RF trazodone 50 mg tablet 25 - 50 mg PO BEDTIME PRN (Reason: Insomnia) clotrimazole-betamethasone 1-0.05 % cream 1 appl topical BID PRN (Reason: itching) 14 Days Qty: 45 2RF prazosin 1 mg capsule 1 mg PO BEDTIME venlafaxine 37.5 mg tablet 37.5 mg PO DAILY Referrals: Kurt Vaughan MD [Primary Care Provider] - Interventions: ED Discharge Assessment Last Done: 11/09/23 16:40 Discharge Date/Time: 11/09/23 16:40 Print Language: Spanish
[2023-11-09 15:02] LABS: MANUAL DIFF FLAG NO
[2023-11-09 15:04] LABS: Basophils Percent Auto 0.5 % (0-2); Eosinophils Absolute Auto 0.2 X10*3/uL (0.0-0.4); Eosinophils Percent Auto 2.7 % (0-4); Hematocrit 43.7 % (37.0-47.0); Hemoglobin 15.1 g/dl (12.0-16.0); Imm Gran Abs Auto 0.01 X10*3/uL (0.00-0.03); Imm Gran Pct Auto 0.2 % (0.0-0.4); Lymphocytes Absolute Auto 1.6 X10*3/uL (1.2-4.9); Lymphocytes Percent Auto 26.7 % (20-40); Mean Corpuscular HGB Conc 34.6 g/dl (31.0-35.0); Mean Corpuscular Hemoglobin 29.6 pg (27.0-33.0); Mean Corpuscular Volume 85.7 fL (80.0-98.0); Mean Platelet Volume 10.1 fL (9.4-12.3); Monocytes Absolute Auto 0.7 X10*3/uL (0.1-1.2); Neutrophils Absolute Auto 3.6 x10*3/uL (2.0-8.3); Neutrophils Percent Auto 58.9 % (45-73); Platelet Count 231 X10*3/uL (160-400)
[2023-11-09 15:08] VITALS: BP 151/91; PULSE 77; RESP 18; TEMP 36.4; O2SAT 94
[2023-11-09 15:10] LABS: Prothrombin Time 11.5 SEC (10.9-12.4)
[2023-11-09 15:21] LABS: Alanine Aminotransferase 37 U/L (0-31); Albumin Level 4.2 g/dL (3.5-5.0); Alkaline Phosphatase 124 U/L (39-117); Anion Gap 10 (12-20); Aspartate Amino Transferase 30 U/L (5-31); Bilirubin Total 0.6 mg/dL (0.0-1.0); Blood Urea Nitrogen 14 mg/dL (9-16); Calcium 10.5 mg/dL (8.4-10.2); Carbon Dioxide 28 mmol/L (22-29); Chloride 107 mmol/L (96-108); Creatinine Clr Calc Pharmacy 115.6; Estimated Glomerular Filt Rate > 60; Glucose Random 82 mg/dL (60-115); Lipase 19 U/L (8-78); Potassium 3.8 mmol/L (3.3-5.1); Sodium 141 mmol/L (135-145); Total Protein 7.1 g/dL (6.5-8.0)
[2023-11-09 15:31] LABS: Troponin-I High Sensitivity < 2.7 ng/L (<3.5-17.0)
[2023-11-09 15:41] LABS: Influenza A PCR NEGATIVE (Negative); Influenza B PCR NEGATIVE (Negative); Resp Syncy Virus RNA Qual PCR NEGATIVE (Negative); SARS COV2 PCR INHOUSE NEGATIVE (Negative)
[2023-11-09] MEDS: Ketorolac Tromethamine 15 MG/ML VIAL IM (16:37)
[2023-11-09 16:40] VITALS: BP 151/91; PULSE 77; RESP 18; TEMP 36.4; O2SAT 94
== END 2023-11-09 16:40 | disposition home or self-care (01) ==
PROVIDERS: Physician Assistant Medical; Emergency Provider Student in an Organized Health Care Education/Training Program; PCP Internal Medicine
DX: R07.89 Other chest pain (principal); Z03.818 Encounter for observation for suspected exposure to other biological agents ruled out; I10 Essential (primary) hypertension; E78.00 Pure hypercholesterolemia, unspecified; J45.909 Unspecified asthma, uncomplicated; F17.210 Nicotine dependence, cigarettes, uncomplicated
CPT/HCPCS: 0241U; 71046; 80053; 83690; 83735; 84484; 85025; 85610; 93005; 96372; 99284; J1885

== ENCOUNTER 2023-11-16 12:41 | Outpatient (AMB) | payer OTHER, SELFPAY ==
[2023-11-16 12:52] VITALS: BP 122/80; PULSE 76; O2SAT 97; BMI 43.6
--- NOTE | 2023-11-16 12:52 | MHC.PC.OV ---
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 Required: No Accompanied by: Self / Same As Patient Allergies No Known Allergies Allergy (Verified 11/16/23 13:25) Medication List - Last Reconciled 11/16/23 by Kurt Vaughan MD acyclovir 5% 1 appl topical 6XD 7 days amlodipine (Norvasc) 10 mg PO DAILY aspirin 81 mg PO DAILY 90 days [CANE As directed] clotrimazole-betamethasone 1-0.05 % 1 appl topical BID PRN 14 days diclofenac sodium 75 mg PO BID PRN hydroxyzine HCl 25 mg PO TID PRN 30 days loratadine 10 mg PO DAILY PRN 90 days losartan 100 mg PO DAILY metoprolol succinate ER 100 mg PO DAILY pantoprazole 40 mg PO DAILY 90 days prazosin 1 mg PO BEDTIME trazodone 25 - 50 mg PO BEDTIME PRN venlafaxine 37.5 mg PO DAILY Ventolin HFA 90 mcg/actuation (albuterol sulfate) 2 puffs inhalation Q6H PRN 30 days NS Tobacco use date assessed: 11/16/23 Dental Screening Dental Screen Date: 11/16/23 Did you have a dental visit in the last 12 months?: No Did you have a dental problem in the last 6 months where you did not have access to dental care?: No Was dental information given to patient?: No HPI follow up HPI Details Patient comes in today for her follow up visit - was last seen by me over a year ago in June 2022 States that she went to the ER last week for 2 to 3 days' duration of recurrent left-sided chest pains States that her chest pains did not seem to be associated with activity or exertion Work ups done in the ER were negative and she was advised to follow up with her PCP regarding this Patient states that she has not had any recurrent of her chest pains over the past week Reports (+) increasing bilateral knee pain lately States that she just had her right medial meniscus repair with Dr. Traore in June 2023 and is concerned about her recent bilateral knee pain She denies any headaches or dizziness Denies any shortness of breath No nausea/vomiting, no abdominal pain No change in bowel habits noted Needs her Diclofenac Rx refilled PFSH Medical History (Updated 11/18/23 @ 02:39 by Kurt Vaughan MD) Lumbar degenerative disc disease Allergic rhinitis Post traumatic stress disorder (PTSD) Anxiety COVID-19 Low back pain Pure hypercholesterolemia Breast mass, right GERD without esophagitis Morbid obesity with BMI of 40.0-44.9, adult Normal colonoscopy (~2014) Asthma Benign essential hypertension Surgical History History of breast lump/mass excision History of tubal ligation Family History Mother Diabetes mellitus Hypertension Asthma Endometrial cancer Sister Lymphoma Sarcoma Breast cancer Social History Housing: Apartment Alcohol intake: current Alcohol intake frequency: a few times a month Alcohol type: wine Patient Tobacco Use Status: Current everyday Tobacco user Tobacco use type: Cigarette Cigarettes Per Day: 5 e-Cigarette/Vaping Use: Never Used Second Hand Smoke Exposure: Yes service: No Current occupational status: unemployed Cognitive needs: No Hearing needs: No Vision needs: Yes (Reading glasses) Female Reproductive History Menstrual Age of Menarche: 16 Questionnaire PHQ-9 Over the last 2 weeks, how often have you been bothered by any of the following problems? 1. Little interest or pleasure in doing things: several days 2. Feeling down, depressed, or hopeless: several days 3. Trouble falling or staying asleep, or sleeping too much: several days 4. Feeling tired or having little energy: several days 5. Poor appetite or overeating: several days 6. Feeling bad about yourself - or that you are a failure or have let yourself or your family down: not at all 7. Trouble concentrating on things, such as reading the newspaper or watching television: not at all 8. Moving or speaking so slowly that other people could have noticed. Or the opposite - being so fidgety or restless that you have been moving around a lot more than usual: not at all 9. Thoughts that you would be better off or of hurting yourself in some way: not at all Total score: 5 Depression Screening Interpretation: Positive Depression Screening Follow-up: Existing condition and In treatment Depression Screening Done: Yes 14434 - PHQ-9 Billing: Yes Source: Developed by Drs. Franco Amato, Jasmyne Park, Moustapha Tamez and colleagues, with an educational chano from [employer]. Thrive Questionnaire Date Thrive assessed: 11/16/23 I am a: Patient What is your living situation today?: I have a steady place to live Within the past 12 months, did the food you bought not last and you didn't have the money to get more?: Never true Within the past 12 months, did you worry whether your food would run out before you got money to buy more?: Never true Do you have trouble paying for medicines?: No Do you have trouble getting transportation to medical appointments?: No Do you have trouble paying your heating and electricity bill?: No Do you have trouble taking care of your child, family member or friend?: No Do you have trouble with day-to-day activities such as bathing, preparing meals, shopping, managing finances, etc.?: No Are you currently unemployed and looking for a job?: Yes Are you interested in more education?: No Please select the resources that you would like help with: None Currently or been in a relationship where the following occur: No concerns reported THRIVE Score: 0 AUDIT C Alcohol Use Questionnaire (AUDIT-C) 1. How often do you have a drink containing alcohol?: Monthly or less 2. How many drinks containing alcohol do you have on a typical day when you are drinking?: 1 or 2 3. How often do you have six or more drinks on one occasion?: Never Total Score: 1 Score Reviewed/Action Taken: Yes FABIAN-7 AMB Questionnaire FABIAN-7 Date FABIAN - 7 assessed: 11/16/23 Feeling nervous, anxious, or on edge: 0 = Not at all Not being able to stop or control worryin = Not at all Worrying too much about different things: 0 = Not at all Trouble relaxin = Not at all Being so restless that it is hard to sit still: 0 = Not at all Becoming easily annoyed or irritable: 0 = Not at all Feeling afraid as if something awful might happen: 0 = Not at all Total FABIAN-7 score (0-4 normal; 5-9 mild; 10-14 moderate; 15-21 severe): 0 Source: Developed by Drs. Franco Amato, Jasmyne Park, Moustapha Tamez and colleagues, with an educational chano from [employer]. Review of Systems Const Denies chills, Denies fatigue, Denies fever(s) and Denies headache(s) ENT Denies dysphagia, Denies dizziness, Denies otalgia, Denies headache(s), Denies neck pain, Denies odynophagia and Denies sore throat Card Denies chest pain, Denies irregular heart rhythm, Denies palpitations and Denies dyspnea Resp Denies chest congestion, Denies cough and Denies dyspnea GI Denies abdominal pain, Denies constipation, Denies dysphagia, Denies heartburn, Denies diarrhea, Denies nausea, Denies odynophagia and Denies vomiting Denies urinary frequency, Denies dysuria and Denies urinary incontinence Musc Reports back pain (on and off, over the lower back), Reports arthralgias (right knee, especially over the anteromedial aspect) and Denies neck pain Skin/Breast Denies rash Neuro Denies dizziness, Denies headache(s) and Denies paresthesias Psych Denies anxiety and Denies depression Endo Denies fatigue and Denies palpitations Gonzales/Lymph Denies easy bruising Physical exam (Primary Care) Vital Signs: Last Vital Signs Pulse 76 11/16/23 12:52 BP 122/80 11/16/23 12:52 Pulse Ox 97 11/16/23 12:52 Oxygen Delivery Method Room Air 11/16/23 12:52 BMI result Body Mass Index 43.6 Tobacco/Smoking Status: Tobacco use Status Tobacco use date assessed 11/16/23 11/16/23 13:00 Patient Tobacco Use Status Current everyday Tobacco 11/16/23 13:00 Tobacco use type Cigarette 11/16/23 13:00 e-Cigarette/Vaping Use Never Used 11/16/23 13:00 PHQ-9: PHQ-9 Score PHQ-9: Total score 5 11/16/23 13:22 Depression Screening Interpretation: Positive Depression Screening Follow-up: Existing condition and In treatment Thrive Assessment: Date of Thrive Assessment Date Thrive assessed 11/16/23 11/16/23 13:00 Currently or been in a relationship where the following occur: No concerns reported Const General: no acute distress and alert HENMT Ears: TM's normal bilaterally and EAC's normal Throat: Yes posterior oropharynx normal and Yes tonsils normal (no TP congestion) Neck Neck: Yes no lymphadenopathy and Yes supple Thyroid: Thyroid normal Resp Auscultation: clear to auscultation bilaterally, no rales and no wheezes Cardio Rate: regular rate Rhythm: regular rhythm Heart sounds: no murmurs GI Palpation (GI): Soft to palpation and nontender Auscultation: normal bowel sounds General: Yes no CVA tenderness Back/Spine/Pelvis Back: no CVA tenderness Thoracic/Lumbar Spine: lumbar spinal tenderness Skin Rashes: no rashes Extrem General: Yes no clubbing, cyanosis or edema Right lower extremity: knee Details: tenderness Location: of the medial joint line and normal ROM; no swelling Left lower extremity: knee Details: tenderness; no swelling and no crepitus Results Reviewed Results Reviewed: Laboratory Tests 11/09/23 11/09/23 14:51 14:52 WBC 6.0 Hgb 15.1 Hct 43.7 Plt Count 231 Sodium 141 Potassium 3.8 Creatinine 0.68 Estimated GFR > 60 Random Glucose 82 Calcium 10.5 H Magnesium 2.0 AST 30 ALT 37 H Albumin 4.2 Lipase 19 Laboratory Tests 11/09/23 11/09/23 14:51 14:52 Alkaline Phosphatase 124 H Troponin I High Sens < 2.7 Coding Level of Care Code Est Pt Level 4 (15796) Diagnoses Pain in both knees, unspecified chronicity M25.561; M25.562 Chronicity: unspecified Chest pain, unspecified type R07.9 Chest pain type: unspecified Benign essential hypertension I10 Pure hypercholesterolemia E78.00 GERD without esophagitis K21.9 Mild intermittent asthma without complication J45.20 Asthma severity: mild Asthma persistence: intermittent Asthma complication type: uncomplicated Seasonal allergic rhinitis due to pollen J30.1 Allergic rhinitis trigger: pollen Allergic rhinitis seasonality: seasonal Degeneration of intervertebral disc of lumbar region with discogenic back pain M51.360 Disc-related pain type: discogenic back pain only Anxiety F41.9 Morbid obesity with BMI of 40.0-44.9, adult E66.01; Z68.41 Assessment & Plan Assessment & Plan (1) Bilateral knee pain: Code(s): M25.561 - Pain in right knee; M25.562 - Pain in left knee Category: Medical Qualifiers: Chronicity: unspecified Qualified Code(s): M25.561 - Pain in right knee; M25.562 - Pain in left knee Plan: Patient had right knee partial medial meniscectomy done on 06/06/[address] Traore States that her right knee symptoms initially improved with surgery but appears to be recurring again recently Have advised patient that her contralateral knee pain is likely due to her subconsciously putting more weight on her other knee and leg to avoid aggravating her right knee pain Will try referring her to physical therapy first for further evaluation and management of her knee pain Follow-up with orthopedics as scheduled (2) Chest pain: Code(s): R07.9 - Chest pain, unspecified Category: Medical Qualifiers: Chest pain type: unspecified Qualified Code(s): R07.9 - Chest pain, unspecified Plan: This is likely musculoskeletal pain as cardiac workups done in the ER last week came back normal/negative Continue Diclofenac 75 mg BID with food PRN - Rx refilled (3) Benign essential hypertension: Code(s): I10 - Essential (primary) hypertension Category: Medical Plan: Reinforced low sodium diet - goal is systolic BP of 120 mm or less Continue Amlodipine 10 mg QD, Losartan 100 mg QD?and Metoprolol ER 100 mg QD (4) Pure hypercholesterolemia: Comment: no meds Code(s): E78.00 - Pure hypercholesterolemia, unspecified Category: Medical Plan: Patient has not had her cholesterol levels checked since 2020 - her total cholesterol at the time was 209 mg/dl and LDL cholesterol was at 134 mg/dl Reinforced low cholesterol diet Will recheck her labs and fasting lipids RHODA for follow up (5) GERD without esophagitis: Code(s): K21.9 - Gastro-esophageal reflux disease without esophagitis Category: Medical Plan: Dietary restrictions reinforced Continue Pantoprazole 40 mg QD PRN (6) Asthma: Code(s): J45.909 - Unspecified asthma, uncomplicated Category: Medical Qualifiers: Asthma severity: mild Asthma persistence: intermittent Asthma complication type: uncomplicated Qualified Code(s): J45.20 - Mild intermittent asthma, uncomplicated Plan: Stable - continue Albuterol HFA 2 puffs 4 times a day as needed - Rx refilled States that she mostly only has to use her inhaler when she has a cold or with increased activity - uses it on average about 3 to occasionally 4 times a week (7) Allergic rhinitis: Code(s): J30.9 - Allergic rhinitis, unspecified Category: Medical Qualifiers: Allergic rhinitis trigger: pollen Allergic rhinitis seasonality: seasonal Qualified Code(s): J30.1 - Allergic rhinitis due to pollen Plan: Continue OTC Loratadine 10 mg QD PRN (8) Lumbar degenerative disc disease: Comment: (+) multilevel facet arthritis seen on lumbar spine x-rays done in October 2020 Code(s): M51.369 - Other intervertebral disc degeneration, lumbar region without mention of lumbar back pain or lower extremity pain Category: Medical Qualifiers: Disc-related pain type: discogenic back pain only Qualified Code(s): M51.360 - Other intervertebral disc degeneration, lumbar region with discogenic back pain only Plan: X-rays of the lumbar spine done back in October 2020 revealed (+) facet arthritis of the lumbar spine Reinforced activity and weight-lifting restrictions Symptoms have improved with physical therapy in the past - can refer back as needed Continue Cyclobenzaprine 5 mg Q HS PRN and Diclofenac 75 mg BID PRN (9) Anxiety: Code(s): F41.9 - Anxiety disorder, unspecified Category: Medical Plan: Continue Hydroxyzine 25 mg TID PRN (10) Morbid obesity with BMI of 40.0-44.9, adult: Code(s): E66.01 - Morbid (severe) obesity due to excess calories; Z68.41 - Body mass index [BMI] 40.0-44.9, adult Category: Medical Plan: Reinforced diet/exercise as tolerated/lose weight Plan To return in 4 months for her annual physical examination Orders: Orders PT Evaluation and Treatment 11/16/23 M25.561 - Pain in right knee, M25.562 - Pain in left knee, S83.241D - Other tear of medial meniscus, current injury, right knee, subsequent encounter Comprehensive [place]. Panel Fast 11/16/23 E78.00 - Pure hypercholesterolemia, unspecified Comprehensive [place]. Panel Fast 4 Months E78.00 - Pure hypercholesterolemia, unspecified, Z00.00 - Encounter for general adult medical examination without abnormal findings TSH reflex Free T4 4 Months E78.00 - Pure hypercholesterolemia, unspecified, Z00.00 - Encounter for general adult medical examination without abnormal findings Vitamin D 25-OH Total 4 Months E55.9 - Vitamin D deficiency, unspecified, Z00.00 - Encounter for general adult medical examination without abnormal findings Lipid Panel 11/16/23 E78.00 - Pure hypercholesterolemia, unspecified Complete Blood Count Auto Diff 4 Months D64.9 - Anemia, unspecified, Z00.00 - Encounter for general adult medical examination without abnormal findings Lipid Panel 4 Months E78.00 - Pure hypercholesterolemia, unspecified, Z00.00 - Encounter for general adult medical examination without abnormal findings UA CC w/rflx Micro + Cult 4 Months R30.0 - Dysuria, Z00.00 - Encounter for general adult medical examination without abnormal findings Medications: Refilled diclofenac sodium Take with food. DO NOT take Naproxen when taking Diclofenac 75 mg PO BID PRN 60 tabs 2RF pain diclofenac sodium Take with food. DO NOT take Naproxen when taking Diclofenac 75 mg PO BID PRN 60 tabs 2RF pain
== END 2023-11-16 13:34 | disposition home or self-care (01) ==
PROVIDERS: PCP Internal Medicine; Visit Provider Internal Medicine
DX: M25.561 Pain in right knee (principal); R07.9 Chest pain, unspecified; E66.01 Morbid (severe) obesity due to excess calories; Z68.41 Body mass index [BMI] 40.0-44.9, adult; M25.562 Pain in left knee; I10 Essential (primary) hypertension; E78.00 Pure hypercholesterolemia, unspecified; K21.9 Gastro-esophageal reflux disease without esophagitis; J45.20 Mild intermittent asthma, uncomplicated; J30.1 Allergic rhinitis due to pollen; M51.360 Other intervertebral disc degeneration, lumbar region with discogenic back pain only; F41.9 Anxiety disorder, unspecified

== ENCOUNTER → 2023-11-16 12:41 | Outpatient (BNVA) | payer OTHER, SELFPAY | PROVIDERS: PCP Internal Medicine; Visit Provider Internal Medicine | DX: E78.00 Pure hypercholesterolemia, unspecified (principal); I10 Essential (primary) hypertension; K21.9 Gastro-esophageal reflux disease without esophagitis; J45.20 Mild intermittent asthma, uncomplicated; J30.1 Allergic rhinitis due to pollen; F41.9 Anxiety disorder, unspecified; M51.360 Other intervertebral disc degeneration, lumbar region with discogenic back pain only; E66.01 Morbid (severe) obesity due to excess calories; Z68.41 Body mass index [BMI] 40.0-44.9, adult; Z71.3 Dietary counseling and surveillance | CPT/HCPCS: 96127; 99212 ==

== ENCOUNTER 2024-02-28 13:19 | Outpatient (REF) | payer OTHER, SELFPAY ==
--- NOTE | ~2024-02-28 | XR_ITS ---
CLINICAL HISTORY: M54.2 - Cervicalgia 6 views cervical spine Comparison: None Findings: Normal alignment. No acute fractures or dislocation. No significant degenerative change. Prevertebral soft tissues within normal limits. IMPRESSION: No acute findings. This document has been electronically signed by: Jez Sommers MD on 02/29/2024 08:54:39
== END 2024-02-28 13:20 | disposition home or self-care (01) ==
LOC: HO.XRAY 13:19
PROVIDERS: PCP Internal Medicine; Visit Provider Internal Medicine
DX: M54.2 Cervicalgia (principal)
CPT/HCPCS: 72040

== ENCOUNTER → 2024-02-28 13:23 | Outpatient (BNV) | payer OTHER, SELFPAY | PROVIDERS: PCP Internal Medicine; Visit Provider Specialist | DX: M54.2 Cervicalgia (principal) | CPT/HCPCS: 72040 ==

== ENCOUNTER 2024-05-21 15:08 | Outpatient (AMB) | payer OTHER, SELFPAY ==
--- NOTE | 2024-05-21 15:12 | A.OFFPC_ITS ---
Vital Signs 05/21/24 15:14 Height 5 ft 6 in Weight 266 lb 8 oz BMI 43.0 BP 110/70 Blood Pressure Location Lt brachial Position Sitting Pulse 76 Pulse Source Pulse Oximeter Temp 96.9 F Temp Source Temporal Artery Scan Pulse Oximetry (%) 96 Oxygen Delivery Method Room Air Intake Visit Reasons: annual exam Intake Note: Patient is here today for a physical. Transit Clerk Required: No Video Game Designer: Not Required per policy Accompanied by: Self / Same As Patient Allergies No Known Allergies Allergy (Verified 05/21/24 15:44) Medication List - Last Reconciled 05/21/24 by Elva Ott PA-C acyclovir 5% 1 appl topical 6XD 7 days amlodipine (Norvasc) 10 mg PO DAILY aspirin 81 mg PO DAILY 90 days [CANE As directed] clotrimazole-betamethasone 1-0.05 % 1 appl topical BID PRN 14 days diclofenac sodium 75 mg PO BID PRN hydroxyzine HCl 25 mg PO TID PRN 30 days loratadine 10 mg PO DAILY PRN 90 days losartan 100 mg PO DAILY metoprolol succinate ER 100 mg PO DAILY pantoprazole 40 mg PO DAILY 90 days prazosin 1 mg PO BEDTIME venlafaxine 37.5 mg PO DAILY Ventolin HFA 90 mcg/actuation (albuterol sulfate) 2 puffs inhalation Q6H PRN 30 days NS Tobacco use date assessed: 05/21/24 Dental Screening Dental Screen Date: 05/21/24 Did you have a dental visit in the last 12 months?: No Did you have a dental problem in the last 6 months where you did not have access to dental care?: No Was dental information given to patient?: No HPI annual exam HPI Details 63-year-old female with past medical his tory of hypertension, asthma, obesity, GERD, hypercholesterolemia, PTSD, anxiety last seen by Dr. Vaughan coming in for annual exam. Presenting for an annual health examination. She has a longstanding history of essential hypertension controlled with medication. She continues to experience recurrent chronic headaches that last for several days and have been more frequent in recent months. She has a previous history of migraines but has not had one in over 7 years. She does monitor her blood pressure during the headaches and BP has been normal. There is ongoing nicotine dependence, and previous attempts to quit have led to adverse effects such as palpitations and nausea. The patient shows symptoms consistent with obstructive sleep apnea but has not undergone a sleep study due to concerns about CPAP use. She has developed right ankle tendinitis, which worsens with activity. Mammogram: Has a appointment in June Colonoscopy: FOBT 01/2023 - cologuard referral placed today Pap smear: Last Pap 2020 - overdue for annual exam COUNTS INCLUDE 234 BEDS AT [facility] Medical History Lumbar degenerative disc disease Allergic rhinitis Post traumatic stress disorder (PTSD) Anxiety COVID-19 Low back pain Pure hypercholesterolemia Breast mass, right GERD without esophagitis Morbid obesity with BMI of 40.0-44.9, adult Normal colonoscopy (~2014) Asthma Benign essential hypertension Surgical History Hx of meniscectomy of right knee History of breast lump/mass excision History of tubal ligation Family History Mother Diabetes mellitus Hypertension Asthma Endometrial cancer Sister Lymphoma Sarcoma Breast cancer Social History Housing: Apartment Alcohol intake: current Alcohol intake frequency: a few times a month Alcohol type: wine Patient Tobacco Use Status: Current everyday Tobacco user Tobacco use type: Cigarette Cigarette Packs Per Day: 0.5 Cigarettes Per Day: 6 e-Cigarette/Vaping Use: Never Used Second Hand Smoke Exposure: Yes service: No Current occupational status: unemployed Cognitive needs: No Hearing needs: No Vision needs: Yes (Reading glasses) Female Reproductive History Menstrual Age of Menarche: 16 Questionnaire PHQ-9 Over the last 2 weeks, how often have you been bothered by any of the following problems? 1. Little interest or pleasure in doing things: not at all 2. Feeling down, depressed, or hopeless: not at all 3. Trouble falling or staying asleep, or sleeping too much: not at all 4. Feeling tired or having little energy: not at all 5. Poor appetite or overeating: not at all 6. Feeling bad about yourself - or that you are a failure or have let yourself or your family down: not at all 7. Trouble concentrating on things, such as reading the newspaper or watching television: not at all 8. Moving or speaking so slowly that other people could have noticed. Or the opposite - being so fidgety or restless that you have been moving around a lot more than usual: not at all 9. Thoughts that you would be better off or of hurting yourself in some way: not at all Total score: 0 Depression Screening Interpretation: Negative Depression Screening Done: Yes Source: Developed by Drs. Franco Amato, Jasmyne Park, Moustapha Tamez and colleagues, with an educational chano from [employer]. Thrive Questionnaire Date Thrive assessed: 05/21/24 I am a: Patient What is your living situation today?: I have a steady place to live Within the past 12 months, did the food you bought not last and you didn't have the money to get more?: Never true Within the past 12 months, did you worry whether your food would run out before you got money to buy more?: Never true Do you have trouble paying for medicines?: No Do you have trouble getting transportation to medical appointments?: No Do you have trouble paying your heating and electricity bill?: No Do you have trouble taking care of your child, family member or friend?: No Do you have trouble with day-to-day activities such as bathing, preparing meals, shopping, managing finances, etc.?: No Are you currently unemployed and looking for a job?: No Are you interested in more education?: No Please select the resources that you would like help with: None Currently or been in a relationship where the following occur: No concerns reported THRIVE Score: 0 AUDIT C Alcohol Use Questionnaire (AUDIT-C) 1. How often do you have a drink containing alcohol?: Monthly or less 2. How many drinks containing alcohol do you have on a typical day when you are drinking?: 1 or 2 Total Score: 1 FABIAN-7 AMB Questionnaire FABIAN-7 Date FABIAN - 7 assessed: 05/21/24 Feeling nervous, anxious, or on edge: 0 = Not at all Not being able to stop or control worryin = Not at all Worrying too much about different things: 0 = Not at all Trouble relaxin = Not at all Being so restless that it is hard to sit still: 0 = Not at all Becoming easily annoyed or irritable: 0 = Not at all Feeling afraid as if something awful might happen: 0 = Not at all Total FABIAN-7 score (0-4 normal; 5-9 mild; 10-14 moderate; 15-21 severe): 0 Source: Developed by Drs. Franco Amato, Jasmyne Park, Moustapha Tamez and colleagues, with an educational chano from [employer]. FABIAN-7 Assessment Billing FABIAN-7 Assessment Tool: FABIAN-7 Assessment 68733 Review of Systems Const Denies body aches, Denies fatigue, Denies fever(s), Denies frequent falls, Reports headache(s) and Denies weakness Eyes Reports no additional complaints and Denies change in vision ENT Denies dysphagia, Denies dizziness, Denies facial pain, Reports headache(s) and Denies odynophagia Card Denies chest pain, Denies syncope, Denies irregular heart rhythm, Denies leg edema, Reports lightheadedness (occasional ) and Denies dyspnea Resp Denies cough and Denies dyspnea GI Denies abdominal pain, Denies constipation, Denies dysphagia, Denies dyspepsia, Denies diarrhea, Denies nausea, Denies odynophagia and Denies vomiting Denies urinary frequency, Denies dysuria, Denies urinary hesitancy and Denies urinary urgency Musc Details: ankle, claudine hand pain Denies back pain and Denies myalgias Skin/Breast Reports system reviewed and no additional complaints, except as documented Neuro Denies dizziness, Denies syncope, Denies frequent falls, Reports headache(s) and Denies weakness Psych Reports no additional complaints Endo Denies fatigue Physical exam (Primary Care) Vital Signs: Last Vital Signs Temp 96.9 F 05/21/24 15:14 Pulse 76 05/21/24 15:14 BP 110/70 05/21/24 15:14 Pulse Ox 96 05/21/24 15:14 Oxygen Delivery Method Room Air 05/21/24 15:14 BMI result Body Mass Index 43.0 Tobacco/Smoking Status: Tobacco use Status Tobacco use date assessed 05/21/24 05/21/24 15:23 Patient Tobacco Use Status Current everyday Tobacco 05/21/24 15:23 Tobacco use type Cigarette 05/21/24 15:23 e-Cigarette/Vaping Use Never Used 05/21/24 15:23 Are you ready to quit: No Tobacco cessation counseling provided: Yes Items discussed: Nicotine replacement and Other (Wellbutrin, Chantix) Relapse Prevention: weight gain after smoking is common and discussed dietary, exercise and/or lifestyle changes Number of minutes spent counselin CPT code: 05909 - 4-10 Minutes PHQ-9: PHQ-9 Score PHQ-9: Total score 0 05/21/24 15:23 Depression Screening Interpretation: Negative Thrive Assessment: Date of Thrive Assessment Date Thrive assessed 05/21/24 05/21/24 15:23 Currently or been in a relationship where the following occur: No concerns reported Const General: cooperative, healthy appearing, comfortable and no acute distress Orientation/consciousness: patient oriented x3 HENMT Head: Yes normocephalic Ears: hearing grossly normal bilaterally, external ears normal, TM's normal claudine aterally and EAC's normal General nose exam: Normal external nose present Face and sinus: Yes normal facial exam and Yes sinuses nontender Mouth: Normal oral and palatal mucosa present and tongue normal Throat: Yes posterior oropharynx normal Eyes General: appearance normal, both eyes and all related structures Conjunctivae: conjunctivae normal Pupils: Equal, round and reactive pupils present EOM: EOMs intact bilaterally and No Nystagmus present Neck Neck: Yes normal visual inspection, Yes full ROM and Yes no lymphadenopathy Chest Chest palpation & inspection: normal inspection of the chest Resp Effort & Inspection: normal respiratory effort Auscultation: clear to auscultation bilaterally, no crackles, no rales, no rhonchi, no wheezes and breath sounds present Cardio Rate: regular rate Rhythm: regular rhythm Peripheral pulses: radial pulses present and dorsalis pedis present GI Inspection: Yes normal to inspection and No Abdominal wall edema Palpation (GI): Soft to palpation, not firm and nontender Auscultation: normal bowel sounds Rectal Exam - Female: deferred General: Yes no CVA tenderness Back/Spine/Pelvis Back: no CVA tenderness Skin General skin exam: no rashes or lesions noted Neuro General: patient oriented x3 Cranial nerves: Yes Equal, round and reactive pupils present, Yes Midline tongue present, Yes Ability to bilaterally elevate shoulders present and No Nystagmus present Gait exam (Neuro): Normal gait present Extrem Other: tenderness to palpation of medical aspect of right ankle General: Yes normal to inspection, Yes full ROM, No no pedal edema and No edema Psych Speech and movement: Normal speech and movement present Affect: normal affect Insight: Good insight present (Psych) Judgement: Good judgement present (Psych) Coding Level of Care Code Est Pt Prev Care 40-64y(21525) Diagnoses Benign essential hypertension I10 Mild intermittent asthma without complication J45.20 Asthma severity: mild Asthma persistence: intermittent Asthma complication type: uncomplicated Morbid obesity with BMI of 40.0-44.9, adult E66.01; Z68.41 GERD without esophagitis K21.9 Pure hypercholesterolemia E78.00 Post traumatic stress disorder (PTSD) F43.10 Anxiety F41.9 Annual physical exam Z00.00 Tear of medial meniscus of right knee, current, unspecified tear type, subsequent encounter S83.241D Tear current or old: current Encounter type: subsequent encounter Meniscus tear of knee type: unspecified type Laterality: right Right ankle tendonitis M77.51 Headache R51.9 Additional Codes FABIAN-7 Assessment Billing - FABIAN-7 Assessment Tool: FABIAN-7 Assessment 49517 ([id number]) Vital Signs *Quality* - CPT code: 96559 - 4-10 Minutes ([id number]) Assessment & Plan Assessment & Plan (1) Benign essential hypertension: Code(s): I10 - Essential (primary) hypertension Category: Medical Plan: Continue on current blood pressure medication. Avoid salt intake and encourage healthy diet and regular exercise. Patient would like to begin decreasing blood pressure medications as her blood pressure has been normal at home and in the office. Plan to decrease amlodipine to 5 mg and follow up in 6 weeks. Advised patient to use blood pressure log and reach out to the office if pressures exceed 140/90. (2) Asthma: Code(s): J45.909 - Unspecified asthma, uncomplicated Category: Medical Qualifiers: Asthma severity: mild Asthma persistence: intermittent Asthma complication type: uncomplicated Qualified Code(s): J45.20 - Mild intermittent asthma, uncomplicated Plan: Asthma currently controlled on present medications. Avoid triggers such as allergies. (3) Morbid obesity with BMI of 40.0-44.9, adult: Code(s): E66.01 - Morbid (severe) obesity due to excess calories; Z68.41 - Body mass index [BMI] 40.0-44.9, adult Category: Medical Plan: Healthy diet and regular exercise is encouraged. (4) GERD without esophagitis: Code(s): K21.9 - Gastro-esophageal reflux disease without esophagitis Category: Medical Plan: Avoid trigger foods such as citrus, tomato products, soda, caffeine, spicy foods and other foods that may be irritating to your stomach. Avoid laying flat 3-4 hours after eating and elevate the head of the bed 30 degrees to prevent acid from moving into the esophagus. Continue on pantoprazole (5) Pure hypercholesterolemia: Comment: no meds Code(s): E78.00 - Pure hypercholesterolemia, unspecified Category: Medical Plan: Avoid foods that are high in cholesterol such as red meat, fried foods, eggs and baked goods. Triglyceride goal of less than 150 and LDL goal of less than 100. (6) Post traumatic stress disorder (PTSD): Code(s): F43.10 - Post-traumatic stress disorder, unspecified Category: Medical Plan: Currently following with psych and on Prazosin. (7) Anxiety: Code(s): F41.9 - Anxiety disorder, unspecified Category: Medical Plan: Feels well managed by her psychiatrist/counselor. Continue on current medication regimen. (8) Annual physical exam: Code(s): Z00.00 - Encounter for general adult medical examination without abnormal findings Category: Medical Plan: Patient is not up-to-date on all recommended routine screenings for her age. She is overdue for colorectal cancer screening and referral was placed for Cologuard box today. She is also overdue for Pap smear advised to reach out her pasting inspector to reschedule annual exam. Her mammogram is scheduled for June. Ordered for updated blood work and plan to follow up in 6 weeks (9) Medial meniscus tear: Comment: Right knee partial medial meniscectomy 06/06/2023 Dr. Traore Code(s): S83.249A - Other tear of medial meniscus, current injury, unspecified knee, initial encounter Category: Medical Qualifiers: Tear current or old: current Encounter type: subsequent encounter Meniscus tear of knee type: unspecified type Laterality: right Qualified Code(s): S83.241D - Other tear of medial meniscus, current injury, right knee, subsequent encounter Plan: Patient was undergoing PT but was discharged and is no longer following with orthopedics. Manages intermittent pain with diclofenac. (10) Right ankle tendonitis: Code(s): M77.51 - Other enthesopathy of right foot and ankle Category: Medical Plan: ankle pain on exam consistent with tendinitis due to overuse. Advised of ice, compression therapy, gentle stretching and diclofenac as needed for pain. No rec ent injuries or falls. (11) Headache: Code(s): R51.9 - Headache, unspecified Category: Medical Plan: Patient has been having frequent headaches that begin behind eyes since spread to the back of the head. Referral was placed to Ophthalmology today for possible eye involvement contributing to the headaches. Ordered for blood work. Advised patient to keep a log of headaches and bring to the next visit. Can consider referral to Neurology if symptoms do not improve. Reviewed with patient red flag symptoms and when to present for re-evaluation. Plan This note was constructed using voice recognition software. While every effort has been made to ensure accuracy and health administrator, still areas may have been included sometimes these areas may affect the content or meeting of the given symptoms. Total time spent caring for the patient today was 30 minutes. This includes time spent before the visit reviewing the chart, time spent during the visit, and time spent after the visit and documentation. Patient was informed and verbally consented to the use of an ambient scribe for clinic note documentation during this visit. Orders: Orders Comprehensive Met. Panel Today Z00.00 - Encounter for general adult medical examination without abnormal findings Complete Blood Count Auto Diff Today Z00.00 - Encounter for general adult medical examination without abnormal findings Vitamin D 25-OH Total Today Z00.00 - Encounter for general adult medical examination without abnormal findings TSH reflex Free T4 Today Z00.00 - Encounter for general adult medical examination without abnormal findings Free T4 (Free Thyroxine) Today Z00.00 - Encounter for general adult medical examination without abnormal findings Vitamin B12 and Folate Today Z00.00 - Encounter for general adult medical examination without abnormal findings Referrals Optometry Referral Z00.00 - Encounter for general adult medical examination without abnormal findings Cologuard Test Z12.11 - Encounter for screening for malignant neoplasm of colon, Z12.12 - Encounter for screening for malignant neoplasm of rectum Medications: New amlodipine 5 mg PO DAILY 90 tabs 0RF Refilled metoprolol succinate ER 100 mg PO DAILY 90 tabs 1RF diclofenac sodium Take with food. DO NOT take Naproxen when taking Diclofenac 75 mg PO BID PRN 60 tabs 2RF pain pantoprazole 40 mg PO DAILY 90 days 90 tabs 1RF K21.9 - Gastro-esophageal reflux disease without esophagitis Ventolin HFA 90 mcg/actuation (albuterol sulfate) 2 puffs inhalation Q6H 30 days PRN 18 grams 0RF shortness of breath or wheezing NS J45.20 - Mild intermittent asthma, uncomplicated loratadine 10 mg PO DAILY 90 days PRN 90 tabs 3RF allergy symptoms J30.9 - Allergic rhinitis, unspecified Discontinued amlodipine (Norvasc) Discontinued Reason: Patient no longer taking 10 mg PO DAILY 90 tabs 3RF
[2024-05-21 15:14] VITALS: BP 110/70; PULSE 76; TEMP 36.1; O2SAT 96; BMI 43.0
--- OUTSIDE RECORDS SUMMARY | 2024-05-21 17:43 | XMS_ITS | Patient Health Record ---
Author Organization [facility] Address [address] [place] [phone] Care Team Providers Care Precision Grinder External Name Role Phone Juan Fredis Primary Care Provider Reason For Referral No Information Plan Of Treatment No Information Insurance Providers Payer Name Payer Address Payer Phone Subscriber Number Group Number Insured Name Patient Relationship to Insured Coverage Start Date Coverage End Date [employer] [facility] [address] [place] [address] [id number] DILLON FLEMING Self - patient is the insured
== END 2024-05-21 16:12 | disposition home or self-care (01) ==
LOC: HO.HMCH 15:08
PROVIDERS: PCP Internal Medicine
DX: Z00.00 Encounter for general adult medical examination without abnormal findings (principal); I10 Essential (primary) hypertension; J45.20 Mild intermittent asthma, uncomplicated; E66.01 Morbid (severe) obesity due to excess calories; Z68.41 Body mass index [BMI] 40.0-44.9, adult; K21.9 Gastro-esophageal reflux disease without esophagitis; E78.00 Pure hypercholesterolemia, unspecified; F43.10 Post-traumatic stress disorder, unspecified; F41.9 Anxiety disorder, unspecified; S83.241D Other tear of medial meniscus, current injury, right knee, subsequent encounter; M77.51 Other enthesopathy of right foot and ankle; R51.9 Headache, unspecified

== ENCOUNTER → 2024-05-21 15:08 | Outpatient (BNVA) | payer OTHER, SELFPAY | PROVIDERS: PCP Internal Medicine | DX: Z00.00 Encounter for general adult medical examination without abnormal findings (principal); I10 Essential (primary) hypertension; J45.20 Mild intermittent asthma, uncomplicated; E66.01 Morbid (severe) obesity due to excess calories; Z68.41 Body mass index [BMI] 40.0-44.9, adult; K21.9 Gastro-esophageal reflux disease without esophagitis; E78.00 Pure hypercholesterolemia, unspecified; F43.10 Post-traumatic stress disorder, unspecified; F41.9 Anxiety disorder, unspecified; S83.241D Other tear of medial meniscus, current injury, right knee, subsequent encounter; M77.51 Other enthesopathy of right foot and ankle; R51.9 Headache, unspecified; Z79.899 Other long term (current) drug therapy | CPT/HCPCS: 96127; 99396 ==

== ENCOUNTER 2024-10-06 17:44 | Emergency (ER) | payer OTHER, SELFPAY ==
--- NOTE | ~2024-10-06 | XR_ITS ---
CLINICAL HISTORY: Pneumonia? 1 view chest x-ray Comparison: CR/DC/SR - XR CHEST 2 VIEWS - 11/09/23 14:58 EDT Findings: The lungs are clear. Normal size heart. No acute fracture. IMPRESSION: 1. No acute findings. This document has been electronically signed by: Luis Fernando Esteves MD on 10/06/2024 19:18:39
[2024-10-06 18:12] VITALS: BP 154/81; PULSE 117; RESP 22; TEMP 37.3; O2SAT 96; BMI 42.8
--- NOTE | 2024-10-06 18:16 | ECG_ITS ---
Test Reason : TACHYCARDIA Blood Pressure : */* mmHG Vent. Rate : 113 BPM Atrial Rate : 113 BPM P-R Int : 166 ms QRS Dur : 88 ms QT Int : 322 ms P-R-T Axes : 50 54 33 degrees QTcB Int : 441 ms Sinus tachycardia Otherwise normal ECG When compared with ECG of 09-Nov-2023 13:55, Vent. rate has increased by 40 bpm Questionable change in QRS axis Referred By: Armando Torres Electronically Signed By: Juvencio Rolle
--- NOTE | 2024-10-06 18:21 | ED_ITS ---
HPI - General Adult General Chief complaint: Upper Respiratory Symptoms Stated complaint: headache,chills, bodyache Time Seen by Provider: 10/06/24 20:55 Source: patient Mode of arrival: ambulatory Limitations: no limitations History of Present Illness ED Provider: Dr. Lin Damico HPI narrative: Patient comes to the emergency room complaining of 2 days of chills, body aches, mild headache, eye burning sensation, frequent urination without hematuria or dysuria. Patient states that at home she has been taking acetaminophen without any significant relief. Denies shortness of breath, denies nausea vomiting or diarrhea. Related Data Home Medications ?Medication ?Instructions ?Recorded ?Confirmed prazosin 1 mg capsule 1 mg PO BEDTIME 05/31/23 venlafaxine 37.5 mg tablet 37.5 mg PO DAILY 05/31/23 0 05/21/24 Previous Rx's ?Medication ?Instructions ?Recorded hydroxyzine HCl 25 mg tablet 25 mg PO TID PRN anxiety 30 days 06/17/21 #90 tabs acyclovir 5 % topical ointment 1 appl topical 6XD 7 da ys #15 grams 02/08/22 clotrimazole-betamethasone 1 1 appl topical BID PRN it alberto 14 06/28/22 %-0.05 % topical cream days #45 grams CANE #1 ea 12/05/22 Ventolin HFA 90 mcg/actuation 2 puff inhalation Q6H DE N 05/21/24 aerosol inhaler (albuterol sulfate) shortness of breat h or wheezing 30 days #18 grams diclofenac sodium 75 mg 75 mg PO BID PRN pain #60 ta bs 05/21/24 tablet,delayed release loratadine 10 mg tablet 10 mg PO DAILY PRN allergy 0 05/21/24 symptoms 90 days #90 tabs metoprolol succinate 100 mg 100 mg PO DAILY #90 tabs 0 05/21/24 tablet,extended release 24 hr pantoprazole 40 mg tablet,delayed 40 mg PO DAILY 90 da ys #90 tabs 05/21/24 release aspirin 81 mg tablet,delayed 81 mg PO DAILY 90 days #9 0 tabs 07/22/24 release losartan 100 mg tablet 100 mg PO DAILY #90 tabs 06/29 amlodipine 5 mg tablet 5 mg PO DAILY #90 tabs 08/26 acetaminophen 500 mg tablet 500 mg PO Q6H PRN fever or pain 10/06/24 #20 tabs ibuprofen 600 mg tablet 600 mg PO Q8H PRN fever or p ain 10/06/24 #20 tabs levofloxacin 500 mg tablet 500 mg PO DAILY #7 tabs 03/01 Allergies Allergy/AdvReac Type Severity Reaction Status Date / Time No Known Allergies Allergy Verified 10/06/24 18:12 Review of Systems 2 Review of Systems: Constitutional : No Weight loss, patient complaining of fever, chills, sweats, fatigue and generalized malaise ENT/Mouth : No Hearing loss, No Ear Pain, No Nasal Congestion, No Sinus Pain, No Hoarseness, No sore throat, No Rhinorrhea, No Swallowing Difficulty Eyes: No Eye Pain, No Swelling, No Redness, No Foreign Body, No Discharge, No Vision Changes Cardiovascular : No Chest Pain, No SOB, No Dyspnea on Exertion, No Orthopnea, No Edema, No Palpitations Respiratory : No Cough, No Sputum, No Wheezing, No Smoke Exposure, No Dyspnea Gastrointestinal : No Nausea, No Vomiting, No Diarrhea, No Constipation, No abdominal Pain, No Hematochezia, No Melena Genitourinary : no irregular bleeding, No Dysuria, complaining of Urinary Frequency, No Hematuria, No Urinary Incontinence, No Urgency, No Flank Pain, No Urinary Flow Changes, No Hesitancy Musculoskeletal : No joint pain, No Myalgias, No Joint Swelling Skin : No Skin Lesions, No rash Neuro : No Weakness, No Numbness, No Paresthesias, No Loss of Consciousness, No Dizziness, complaining of Headache Psych : No Anxiety/Panic, No Depression, No SI/HI/AH/VH, No Social Issues, Heme/Lymph: No Bruising, No Bleeding,No Lymphadenopathy Endocrine : No Polyuria, No Polydipsia, No Temperature Intolerance [facility] Past Medical History Medical History Lumbar degenerative disc disease Allergic rhinitis Post traumatic stress disorder (PTSD) Anxiety COVID-19 Low back pain Pure hypercholesterolemia Breast mass, right GERD without esophagitis Morbid obesity with BMI of 40.0-44.9, adult Normal colonoscopy (~2014) Asthma Benign essential hypertension Surgical History Hx of meniscectomy of right knee History of breast lump/mass excision History of tubal ligation Family History Family History Mother Diabetes mellitus Hypertension Asthma Endometrial cancer Sister Lymphoma Sarcoma Breast cancer Social History Social History Housing: Apartment Alcohol intake: never Patient Tobacco Use Status: Current everyday Tobacco user Tobacco use type: Cigarette Cigarette Packs Per Day: 0.5 Cigarettes Per Day: 6 Smoked in Last 30 Days: No e-Cigarette/Vaping Use: Never Used Second Hand Smoke Exposure: Yes Use of substances other than those prescribed or required for medical reasons: No Advance Directives: No Advance Directives Information Provided: No service: No Current occupational status: unemployed Cognitive needs: No Hearing needs: No Vision needs: Yes (Reading glasses) Physical Exam ED Exam Exam: Appearance: Alert. Oriented X3. No acute distress. Eyes: Pupils equal, round and reactive to light. ENT: Pharynx normal. Neck: Normal inspection. Neck supple. No lymph nodes noted. No crepitus CVS: Normal heart rate and rhythm. Pulses normal. Normal S1 and S2 Respiratory: No respiratory distress. Very mild occasional wheezing, good air movement, oxygen saturation 97% on room air. No rales Abdomen: Soft and nontender. No rigidity. No distention. Skin: Skin warm and clammy to palpation. Normal skin color. Normal skin turgor. Extremities: No lower extremity edema. No Lacerations. No Rash Neuro: Oriented X 3. No motor deficit. No sensory deficit. Moving all extremities. No slurred speech. CN 2 through 12 grossly intact Psych: calm, cooperative, normal affect Vital Signs: Vital Signs - 24 hr 10/06/24 20:57 10/06/24 21:30 10/06/24 22:36 Temperature 100.2 F 98.9 F Pulse Rate 94 Respiratory Rate 18 Blood Pressure 145/89 H Pulse Oximetry 97 100 Oxygen Delivery Method Room Air Room Air BMI result Body Mass Index 42.8 Course Course Course Narrative: RME: 64-year-old female presents to ED for headache, nausea, vomiting body aches chills and subjective fever. Patient denies any chest pain shortness of breath. EKG labs chest x-ray SARs strep ordered Medications Administered Discontinued Medications Generic Name Dose Route Start Last Admin Trade Name Marii PRN Reason Stop Dose Admin Acetaminophen 975 mg 10/06/24 20:27 10/06/24 20:34 Acetaminophen 325 Mg Tablet PO 10/06/24 20:28 975 mg ONCE ONE Administration Ibuprofen 600 mg 10/06/24 21:03 10/06/24 21:28 Ibuprofen 600 Mg Tablet PO 10/06/24 21:04 600 mg ONCE ONE Administration Ketorolac Tromethamine 30 mg 10/06/24 22:10 10/06/24 22:22 Ketorolac Tromethamine 30 Mg/Ml Vial IM 10/06/24 22:11 30 mg ONCE ONE Administration Levofloxacin 500 mg 10/06/24 22:01 10/06/24 22:22 Levofloxacin 500 Mg Tablet PO 10/06/24 22:02 500 mg ONCE ONE Administration Medical Decision Making Medical Decision Making [facility] Narrative: My interpretation of labs: No significant abnormality patient's hematology and chemistry, normal LFTs, normal troponin, serology negative for influenza, RSV, COVID and strep Chest x-ray does not show any acute abnormalities. Patient had a fever of 102.2. Accompanied by a heart rate of 116. Patient was given p.o. acetaminophen and ibuprofen. Urinalysis is positive for UTI. Patient has no flank pain. I discussed with the patient that we will different Levaquin, it is possible that the chest x-ray did not detect pneumonia. However, the Levaquin will be helpful for both, URI infection and the urinary tract infection. Patient's white blood cell count within normal limits. Patient's blood pressure steady in the 150s to 160s, no episodes of hypotension. Sepsis is not suspected. Differential Diagnosis Differential Diagnoses: The differential diagnosis associated with the presentation includes (Viral syndrome, RSV, COVID, influenza, urinary tract infection) Admission/Observation Consideration of admission/observation: Escalation of care including admission/observation considered (Given patient's symptoms and fever, observation was considered) Lab Data [facility] Lab Attestation statement: I reviewed the patient's lab results. 10/06/24 18:38 10/06/24 18:38 Labs: Lab Results 10/06/24 10/06/24 Range/Units 18:38 21:12 WBC 6.3 (4.8-10.8) X10*3/uL RBC 4.94 (4.20-5.50) X10*6/uL Hgb 14.5 (12.0-16.0) g/dl Hct 41.6 (37.0-47.0) % MCV 84.2 (80.0-98.0) fL MCH 29.4 (27.0-33.0) pg MCHC 34.9 (31.0-35.0) g/dl RDW 13.0 (11.0-16.0) % Plt Count 163 D (160-400) X10*3/uL MPV 9.8 (9.4-12.3) fL Immature Gran % (Auto) 0.3 (0.0-0.4) % Neut % (Auto) 76.4 H (45-73) % Lymph % (Auto) 16.0 L (20-40) % [place] % (Auto) 7.1 (2-11) % Eos % (Auto) 0.0 (0-4) % Baso % (Auto) 0.2 (0-2) % Lymph # (Auto) 1.0 L (1.2-4.9) X10*3/uL [place] # (Auto) 0.5 (0.1-1.2) X10*3/uL Eos # (Auto) 0.0 (0.0-0.4) X10*3/uL Baso # (Auto) 0.0 (0.0-0.2) X10*3/uL Abs Immat Gran (auto) 0.02 (0.00-0.03) X10*3/uL Absolute Neuts (auto) 4.8 (2.0-8.3) x10*3/uL Absolute Nucleated RBC 0.000 (0.0-0.012) X10*3/uL Nucleated RBC % (auto) 0.0 (0.0-0.2) /100WBC PT 12.5 H (10.9-12.4) SEC INR 1.1 (0.9-1.1) APTT 27.7 (26.7-34.1) SEC Sodium 139 (135-145) mmol/L Potassium 3.6 (3.3-5.1) mmol/L Chloride 104 (96-108) mmol/L Carbon Dioxide 24 (22-29) mmol/L Anion Gap 15 (12-20) BUN 9 (9-16) mg/dL Creatinine 0.78 (0.5-1.4) mg/dL Estim Creat Clear Calc 98.7 Estimated GFR > 60 Random Glucose 108 (60-115) mg/dL Calcium 9.7 D (8.4-10.2) mg/dL Total Bilirubin 0.5 (0.0-1.0) mg/dL AST 44 H (5-31) U/L ALT 50 H (0-31) U/L Alkaline Phosphatase 110 (39-117) U/L Troponin I High Sens < 2.7 (<3.5-17.0) ng/L Total Protein 6.9 (6.5-8.0) g/dL Albumin 4.1 (3.5-5.0) g/dL Urine Color Yellow Urine Appearance Clear Urine pH 6.0 (5.0-9.0) Ur Specific [place] 1.020 (1.005-1.025) Urine Protein 30 (1+) H (Neg-Trace) mg/dL Urine Glucose (UA) Negative (Negative) mg/dL Urine Ketones Negative (Negative) mg/dL Urine Blood Small (1+) H (Negative) Urine Nitrite Negative (Negative) Ur Leukocyte Esterase Moderate (2+) H (Negative) Urine RBC 6-10 H (0-2) /HPF Urine WBC 21-50 H (0-5) /HPF Ur Squamous Epith Cells 6-10 (0-2) /HPF Urine Bacteria 2+ (None Seen) Hyaline Casts 0-2 (0-2) /LPF Influenza Type A (PCR) NEGATIVE (Negative) Influenza Type B (PCR) NEGATIVE (Negative) RSV RNA Qual (PCR) NEGATIVE (Negative) SARS-CoV-2 RNA (RT-PCR) NEGATIVE (Negative) S. pyogenes GrpA NICCI Negative (Negative) Independent Interpretation I performed an independent interpretation of an: Plain X-Ray Radiology Impression Discussion of test interpretation with radiology: I have reviewed the radiologist's reading. Radiologist Impression: The lungs are clear. Normal size heart. No acute fracture. IMPRESSION: 1. No acute findings Critical Care Time Critical Care Time Critical Care Time: Yes Total Critical Care Time: 35 Attestation: I have personally provided critical care time. Time includes review of lab data, radiology results, discussion with consultants, and monitoring for potential decompensation. Intervention performed as documented. Discharge Plan Discharge Clinical Impression: UTI (urinary tract infection), Viral URI Patient Disposition: Home, Self-Care Instructions: Urinary Tract Infection in Women (ED), Viral Syndrome (ED) Additional Instructions: Please follow-up with your primary care physician tomorrow. If you have any worsening or new symptoms, please return to the emergency room or call 911 Prescriptions: New levofloxacin 500 mg tablet 500 mg PO DAILY Qty: 7 0RF acetaminophen 500 mg tablet 500 mg PO Q6H PRN (Reason: fever or pain) Qty: 20 0RF ibuprofen 600 mg tablet 600 mg PO Q8H PRN (Reason: fever or pain) Qty: 20 0RF No Action hydroxyzine HCl 25 mg tablet 25 mg PO TID PRN (Reason: anxiety) 30 Days Qty: 90 2RF (DME) CANE See Rx Instructions .Route .MEDSUPPLY Qty: 1 0RF Rx Instructions: As directed aspirin 81 mg tablet,delayed release (DR/EC) 81 mg PO DAILY 90 Days Qty: 90 3RF losartan 100 mg tablet 100 mg PO DAILY Qty: 90 1RF amlodipine 5 mg tablet 5 mg PO DAILY Qty: 90 0RF acyclovir 5 % ointment 1 appl topical 6XD 7 Days Qty: 15 0RF clotrimazole-betamethasone 1-0.05 % cream 1 appl topical BID PRN (Reason: itching) 14 Days Qty: 45 2RF prazosin 1 mg capsule 1 mg PO BEDTIME venlafaxine 37.5 mg tablet 37.5 mg PO DAILY metoprolol succinate 100 mg tablet extended release 24 hr 100 mg PO DAILY Qty: 90 1RF diclofenac sodium 75 mg tablet,delayed release (DR/EC) 75 mg PO BID PRN (Reason: pain) Qty: 60 2RF Rx Instructions: Take with food. DO NOT take Naproxen when taking Diclofenac loratadine 10 mg tablet 10 mg PO DAILY PRN (Reason: allergy symptoms) 90 Days Qty: 90 3RF pantoprazole 40 mg tablet,delayed release (DR/EC) 40 mg PO DAILY 90 Days Qty: 90 1RF albuterol sulfate [Ventolin HFA] 90 mcg/actuation HFA aerosol inhaler 2 puff inhalation Q6H PRN (Reason: shortness of breath or wheezing) 30 Days Qty: 18 0RF Interventions: ED Discharge Assessment Last Done: 10/06/24 22:36 Discharge Date/Time: 10/06/24 22:39 Print Language: Danish
[2024-10-06 18:43] LABS: MANUAL DIFF FLAG NO
[2024-10-06 18:48] LABS: Hematocrit 41.6 % (37.0-47.0); Hemoglobin 14.5 g/dl (12.0-16.0); Imm Gran Abs Auto 0.02 X10*3/uL (0.00-0.03); Imm Gran Pct Auto 0.3 % (0.0-0.4); Lymphocytes Absolute Auto 1.0 X10*3/uL (1.2-4.9); Mean Corpuscular HGB Conc 34.9 g/dl (31.0-35.0); Mean Corpuscular Hemoglobin 29.4 pg (27.0-33.0); Mean Corpuscular Volume 84.2 fL (80.0-98.0); NRBC Abs Auto 0.000 X10*3/uL (0.0-0.012); NRBC Pct Auto 0.0 /100WBC (0.0-0.2); Platelet Count 163 X10*3/uL (160-400); Red Blood Count 4.94 X10*6/uL (4.20-5.50); White Blood Count 6.3 X10*3/uL (4.8-10.8)
[2024-10-06 18:51] LABS: IDNOW Serial# 08D9AD1C; Strep A Nucleic Acid Negative (Negative)
[2024-10-06 18:59] LABS: Alanine Aminotransferase 50 U/L (0-31); Albumin Level 4.1 g/dL (3.5-5.0); Alkaline Phosphatase 110 U/L (39-117); Anion Gap 15 (12-20); Aspartate Amino Transferase 44 U/L (5-31); Blood Urea Nitrogen 9 mg/dL (9-16); Calcium 9.7 mg/dL (8.4-10.2); Carbon Dioxide 24 mmol/L (22-29); Chloride 104 mmol/L (96-108); Creatinine Clr Calc Pharmacy 98.7; Estimated Glomerular Filt Rate > 60; Potassium 3.6 mmol/L (3.3-5.1); Sodium 139 mmol/L (135-145); Total Protein 6.9 g/dL (6.5-8.0)
[2024-10-06 19:12] LABS: INTERNATIONAL NORM RATIO 1.1 (0.9-1.1); Partial Thromboplastin Time 27.7 SEC (26.7-34.1); Prothrombin Time 12.5 SEC (10.9-12.4)
[2024-10-06 19:29] LABS: Resp Syncy Virus RNA Qual PCR NEGATIVE (Negative); SARS COV2 PCR INHOUSE NEGATIVE (Negative)
[2024-10-06 19:33] LABS: Troponin-I High Sensitivity < 2.7 ng/L (<3.5-17.0)
[2024-10-06 20:26] VITALS: BP 165/97; PULSE 116; RESP 18; TEMP 39; O2SAT 96
--- OUTSIDE RECORDS SUMMARY | 2024-10-06 20:26 | XMS_ITS | Patient Health Record ---
Author Organization [facility] Address [address] [place] [address] [phone] Care Team Providers Care Back Panel Padder Name Role Phone Juan Fredis Primary Care Provider Reason For Referral No Information Plan Of Treatment No Information Insurance Providers Payer Name Payer Address Payer Phone Subscriber Number Group Number Insured Name Patient Relationship to Insured Coverage Start Date Coverage End Date [facility] [address] [place] [address] [id number] DILLON FLEMING Self - patient is the insured
--- NOTE | 2024-10-06 20:50 | PC.NURSE ---
Assumed care of pt presents with generalized body aches and fever, hx of asthma, aaox4
[2024-10-06 20:57] VITALS: O2SAT 97
[2024-10-06 21:24] LABS: Appearance Urine Clear; Glucose Urine UA Negative (Negative); PH 6.0 (5.0-9.0); Specific Gravity - Urine 1.020 (1.005-1.025); UMIC TRIGGER UACC YES
[2024-10-06 21:30] VITALS: TEMP 37.9
[2024-10-06 21:38] LABS: UACC Culture Trigger YES
[2024-10-06 22:36] VITALS: BP 145/89; PULSE 94; RESP 18; TEMP 37.2; O2SAT 100
== END 2024-10-06 22:39 | disposition home or self-care (01) ==
PROVIDERS: Physician Assistant; Emergency Provider Emergency Medicine; PCP Internal Medicine
DX: N39.0 Urinary tract infection, site not specified (principal); J06.9 Acute upper respiratory infection, unspecified; R00.0 Tachycardia, unspecified; R51.9 Headache, unspecified; R35.0 Frequency of micturition; I10 Essential (primary) hypertension; Z79.899 Other long term (current) drug therapy
CPT/HCPCS: 36415; 71045; 80053; 81001; 84484; 85025; 85610; 85730; 87086; 87088; 87186; 87637; 87651; 93005; 96372; 99284; 99285; J1885

== ENCOUNTER → 2024-10-06 18:16 | Outpatient (BNV) | payer OTHER, SELFPAY | PROVIDERS: PCP Internal Medicine; Visit Provider Student in an Organized Health Care Education/Training Program | DX: R68.83 Chills (without fever) (principal); M79.10 Myalgia, unspecified site | CPT/HCPCS: 71045 ==

== ENCOUNTER → 2024-10-06 18:16 | Outpatient (BNV) | payer OTHER, SELFPAY | PROVIDERS: Emergency Provider Emergency Medicine; PCP Internal Medicine; Visit Provider Internal Medicine Cardiovascular Disease | DX: R00.0 Tachycardia, unspecified (principal) | CPT/HCPCS: 93010 ==